=== PATIENT | female | born 1945 | race Asian ===

== ENCOUNTER 2016-11-22 15:07 | Inpatient (IN) | payer OTHER ==
[2016-11-22 15:52] LABS: VENOUS BLOOD GAS HCO3 29.6 meq/L (19-25); VENOUS PH 7.26 (7.32-7.42)
[2016-11-22 15:57] LABS: BASOPHIL 0.6 % (0-2.0); EOSINOPHIL 3.6 % (0-4.5); MCH 28.5 pg (25.7-33.7); MCHC 33.6 g/dl (32.0-36.0); MEAN CELL VOLUME 84.7 fl (80-96); MEAN PLT VOLUME 9.6 fl (7.5-11.1); NEUTROPHILS 65.8 % (42.8-82.8); PLATELET COUNT 197 K/MM3 (134-434); RDW 14.3 % (11.6-15.6); WHITE BLOOD COUNT 7.3 K/mm3 (4.0-10.0)
[2016-11-22 16:10] LABS: INR 0.94 (0.82-1.09); PROTHROMBIN TIME (PATIENT) 10.3 SEC (9.98-11.88)
[2016-11-22 16:13] LABS: ACTIVATED PTT 33.2 SECONDS (26.9-34.4)
--- NOTE | 2016-11-22 16:22 | PDOC ---
Attending Attestation - Resident Resident Name: Cesar Calzada - ED Attending Attestation I have performed the following: I have examined & evaluated the patient, The case was reviewed & discussed with the resident, I agree w/resident's findings & plan - HPI HPI: 11/22/16 16:44 71y F hx of iddm, cad s/p 1 stent, htn, presents with AMS, was found not herself by her grandchild, given juice with improvement. Pt has no complaints but she was noted hypothermic to 92 rectally here, bgm improved to 80 s/p EMS administration of deextrose. Pt at baseline mental status per son. History assisted in the patients language via her son as she did not speak emirati. unclear cause of her hypothermia - ?hypothyroid, ?sepsis awiaitng workup will likely be admitted pt was put on lonnie hugger for warming will contine to monitor her BGM. CRITICAL CARE DOCUMENTATION: I spent ~35 minutes of Critical Care time, excluding separately billable procedures, involving high complexity decision making to assess, manipulate and support vital system function(s) to treat single or multiple vital organ system failure and/or to prevent further life threatening deterioration of the patient' s condition. - Physicial Exam PE: 11/27/16 09:10 see above - Medical Decision Making 11/27/16 09:10 see above Heart Score/ECG Review - ECG Impressions Comment:: 11/22/16 16:31 Twelve-lead EKG was performed and reviewed by me. There is normal sinus rhythm with a rate of 54. no st changes suggestive of ischemia sinus bradycardia
--- NOTE | 2016-11-22 16:30 | PDOC ---
History of Present Illness - General Chief Complaint: Blood Sugar Problem Stated Complaint: LOW SUGAR Time Seen by Provider: 11/22/16 15:33 History Source: Family (son) Exam Limitations: No Limitations - History of Present Illness Initial Comments: 71 y/o F with PMH of IDDM, CAD (s/p 1 stent on plavix), HTN presents to ER w/ AMS and low blood sugar. Pt was well this morning and in usual state of health. Pt was later found in her bed at around 2PM unresponsive with eyes open by grandson. Blood sugar was checked by family and was noted to be 28. She had taken her regular dose of insulin and compliant with medical therapy as usual in the morning. EMS was called and orange juice was given which she eventually swallowed 5 min later after being in mouth. She gradually returned to baseline mental status. Pt had no complaints in the morning. Currently she feels cold. Currently denies CP, SOB, LANDA, light-headedness, dizziness, fevers, abd pain, dysuria, constipation, diarrhea, hair loss, skin changes, cold intolerance, swelling. At baseline pt is active and independent. She takes her own medications but family makes sure she takes the right amount of insulin. Past History - Past Medical History Allergies/Adverse Reactions: Allergies Allergy/AdvReac Type Severity Reaction Status Date / Time No Known Allergies Allergy Verified 11/22/16 15:26 Home Medications: Ambulatory Orders Amlodipine Besylate 5 mg PO DAILY 11/22/16 Aspirin [ASA -] 81 mg PO HS 11/22/16 Clopidogrel Bisulfate [Plavix -] 75 mg PO DAILY 11/22/16 Ergocalciferol (Vitamin D2) [Vitamin D2] 50,000 unit PO DAILY 11/22/16 Hydrochlorothiazide [Hctz -] 12.5 mg PO DAILY 11/22/16 Insulin Glargine,Hum.rec.anlog [Lantus Solostar PEN (NF)] 30 units SQ HS Insulin Lispro [Humalog] 0 unit SQ TID 11/22/16 Metoprolol Tartrate 25 mg PO BID 11/22/16 Rosuvastatin Calcium [Crestor] 10 mg PO HS 11/22/16 Sodium Polystyrene Sulfonate [Kalexate] 30 gm PO DAILY 11/22/16 Cardiac Disorders: Yes Diabetes: Yes HTN: Yes Hypercholesterolemia: Yes - Surgical History Cardiac Surgery: Yes (stent) - Psycho/Social/Smoking Cessation Hx Anxiety: No Suicidal Ideation: No Smoking History: Never smoked Information on smoking cessation initiated: No Hx Alcohol Use: No Drug/Substance Use Hx: No Substance Use Type: None Review of Systems - Review of Systems Able to Perform ROS?: Yes Comments:: CONSTITUTIONAL: +chills, AMS Absent: fever, diaphoresis, generalized weakness, malaise, loss of appetite HEENT: Absent: rhinorrhea, nasal congestion, throat pain, ear pain, eye pain, visual Changes CARDIOVASCULAR: Absent: chest pain, syncope, palpitations, irregular heart rate , lightheadedness, peripheral edema RESPIRATORY: Absent: cough, shortness of breath, dyspnea with exertion, orthopnea, wheezing, stridor, hemoptysis GASTROINTESTINAL:Absent: abdominal pain, abdominal distension, nausea, vomiting , diarrhea, constipation, melena, hematochezia GENITOURINARY: Absent: dysuria, frequency, urgency, hesitancy, hematuria, flank pain, genital pain MUSCULOSKELETAL: Absent: myalgia, arthralgia, joint swelling ENDOCRINE:Absent: unexplained weight gain, unexplained weight loss, heat intolerance, cold intolerance NEUROLOGIC: Absent: headache, focal weakness or paresthesias, dizziness, unsteady gait, seizure, mental status changes, bladder or bowel incontinence PSYCHIATRIC: Absent: anxiety, depression, suicidal or homicidal ideation, hallucinations Is the patient limited [place] proficient: Yes *Physical Exam - Vital Signs Last Vital Signs Temp Pulse Resp BP Pulse Ox 92.6 F L 53 L 20 189/76 100 11/22/16 15:59 11/22/16 15:26 11/22/16 15:26 11/22/16 15:26 11/22/16 15:26 - Physical Exam Comments: GENERAL: +lonnie hugger but in no acute distress. Well developed, well nourished. Awake and alert. No acute distress. HEENT: Normocephalic, atraumatic. EOMI. No conjunctival pallor. Sclera are non- icteric. Moist mucous membranes. NECK: Supple. Full ROM. No thyromegaly. CARDIOVASCULAR:Bradycardia. No murmurs, rubs, or gallops. PULMONARY: No evidence of respiratory distress. Lungs clear to auscultation bilaterally. No wheezing, rales or rhonchi. ABDOMINAL: Soft. Non-tender. Non-distended. No rebound or guarding. No organomegaly. Normoactive bowel sounds. MUSCULOSKELETAL: No bony deformities or tenderness. No CVA tenderness. EXTREMITIES: No edema. SKIN: Warm and dry. Normal capillary refill. No rashes. No jaundice. NEUROLOGICAL: Alert, awake, appropriate. Cranial nerves 2-12 grossly intact. Normal speech. PSYCHIATRIC: Cooperative. Good eye contact. Appropriate mood and affect. Heart Score/ECG Review - ECG Intrepretation Comment:: Sinus bradycardia at 54bpm ED Treatment Course - LABORATORY CBC & Chemistry Diagram: 11/22/16 15:44 11/22/16 15:44 - ADDITIONAL ORDERS Additional order review: Laboratory Results 11/22/16 11/22/16 15:50 15:17 VBG pH 7.26 L POC VBG pCO2 67.7 H* POC VBG pO2 20.3 L Mixed VBG HCO3 29.6 H POC Glucometer 80.96314 11/22/16 11/22/16 15:44 15:17 RBC 4.50 MCV 84.7 MCHC 33.6 RDW 14.3 MPV 9.6 Neutrophils % 65.8 Lymphocytes % 23.4 Monocytes % 6.6 Eosinophils % 3.6 Basophils % 0.6 POC Glucometer 80.71533 Medical Decision Making - Medical Decision Making 71 y/o F with PMH of IDDM, CAD (s/p 1 stent on plavix), HTN presents to ER w/ AMS and low blood sugar. Pt was well this morning and in usual state of health. Pt was later found in her bed at around 2PM unresponsive with eyes open by grandson. Blood sugar was checked by family and was noted to be 28. She had taken her regular dose of insulin and compliant with medical therapy as usual in the morning. EMS was called and orange juice was given which she eventually swallowed 5 min later after being in mouth. 11/22/16 16:25 Pt temp found to be 92. Lonnie hugger placed. Ordered CBC, CMP, lactic acid, blood culture, UA, urine culture, VBG, TSH, cardiac profile, CXR Pt has no complaints at this time except for feeling cold. She otherwise feels back to baseline except for feeling cold. 11/22/16 17:06 Lactic acid elevated at 2.1 and random glucose at 69. TSH 2.06 Due to hypothermia and hypoglycemic episode pt will likely require further management and observation. Temperature remains at 93.1 F Pt with no complaints at this time. 11/22/16 17:58 Pt to be admitted to [facility] with bradycardia and hypothermia. CONTACT INFORMATION for son: Vincenzo Chavez - [phone] *DC/Admit/Observation/Transfer Diagnosis at time of Disposition: Hypothermia Qualifiers: Encounter type: initial encounter Qualified Code(s): T68.XXXA - Hypothermia, initial encounter
[2016-11-22 16:34] LABS: ALBUMIN 4.7 g/dl (3.4-5.0); BILIRUBIN,TOTAL 0.5 mg/dL (0.2-1.0); CALCIUM 9.5 mg/dL (8.5-10.1); COCKROFT - GAULT 28.747; CREATININE 1.9 mg/dL (0.55-1.02)
[2016-11-22 16:36] LABS: TROPONIN I 0.05 ng/ml (0.00-0.05)
[2016-11-22] MEDS ORDERED: SODIUM CHLORIDE 1,000 ML IV STA (17:43)
[2016-11-22] MEDS ORDERED: DEXTROSE 5%-0.45% SALINE 1,000 ML IV SCH ×3 (18:00)
--- NOTE | 2016-11-22 18:20 | HP ---
CHIEF COMPLAINT: syncope, hypoglycemia PCP: 2 [facility] HISTORY OF PRESENT ILLNESS: 71 y/o F with PMH of IDDM, CAD (s/p 1 stent on plavix), HTN presents to ER w/ AMS and low blood sugar. Pt was well this morning and in usual state of health. Pt was later found in her bed at around 2PM unresponsive with eyes open by grandson. Blood sugar was checked by family and was noted to be 28. She had taken her regular dose of insulin and compliant with medical therapy as usual in the morning. EMS was called and orange juice was given which she eventually swallowed 5 min later after being in mouth. She gradually returned to baseline mental status. Pt had no complaints in the morning. Currently she feels cold. Currently denies CP, SOB, LANDA, light-headedness, dizziness, fevers, abd pain, dysuria, constipation, diarrhea, hair loss, skin changes, cold intolerance, swelling. At baseline pt is active and independent. She takes her own medications but family makes sure she takes the right amount of insulin. ER course was notable for: (1) hypoglycemia: continue FS, po diet improving (2) hypothermia: temp 92, bare hugger in place (3) Lactic acid 2.1 one bag of fluid Recent Travel: none PAST MEDICAL HISTORY: IDDM, CAD with stent/plavic, HTN PAST SURGICAL HISTORY: none Social History: denies toxic habits Family History: Allergies No Known Allergies Allergy (Verified 11/22/16 15:26) HOME MEDICATIONS: Home Medications Medication Instructions Recorded Amlodipine Besylate 5 mg PO DAILY 11/22/16 Aspirin [ASA -] 81 mg PO HS 11/22/16 Clopidogrel Bisulfate [Plavix -] 75 mg PO DAILY 11/22/16 Ergocalciferol (Vitamin D2) 50,000 unit PO DAILY 11/22/16 [Vitamin D2] Hydrochlorothiazide [Hctz -] 12.5 mg PO DAILY 11/22/16 Insulin Glargine,Hum.rec.anlog 30 units SQ HS 11/22/16 [Lantus Solostar PEN (NF)] Insulin Lispro [Humalog] 0 unit SQ TID 11/22/16 Metoprolol Tartrate 25 mg PO BID 11/22/16 Rosuvastatin Calcium [Crestor] 10 mg PO HS 11/22/16 Sodium Polystyrene Sulfonate 30 gm PO DAILY 11/22/16 [Kalexate] REVIEW OF SYSTEMS pt with language barrier and family that speaks for her. States she is AAO and normal mental status resolved since glucose corrected. PHYSICAL EXAMINATION GENERAL: Awake, alert, and fully oriented, in no acute distress. HEAD: Normal with no signs of trauma. NECK: Normal range of motion, supple without lymphadenopathy, JVD, or masses. LUNGS: Breath sounds equal, clear to auscultation bilaterally. No wheezes, and no crackles. No accessory muscle use. HEART: Regular rate 53-70 and rhythm, normal S1 and S2 without murmur, rub or gallop. ABDOMEN: Soft, nontender, not distended, normoactive bowel sounds, no guarding, no rebound, no masses. No hepatomegaly or splenomegaly. MUSCULOSKELETAL: Normal range of motion at all joints. No bony deformities or tenderness. No CVA tenderness. UPPER EXTREMITIES: 2+ pulses, warm, well-perfused. No cyanosis. No clubbing. No peripheral edema. LOWER EXTREMITIES: 2+ pulses, warm, well-perfused. No calf tenderness. No peripheral edema. NEUROLOGICAL: Cranial nerves II-XII intact. Normal speech. Normal gait. SKIN: Warm, dry, normal turgor, no rashes or lesions noted, normal capillary refill. ASSESSMENT/PLAN: A/P 71 yr old with recent AMS 2nd to hypoglycemic episode finding at home at 28 , now resolving however also hypothermic at 92 rectally on bare hugger slowly resolving 1. Hypothermia -bare hugger -monitor temp hourly -po intake -EKG with SB to NSR -r/o sepsis ~ ua, ucx, cxr, blood cx (no source seeded currently) 2. hypoglycemia -finger sticks ac and hs with sliding scale -hold lantus and humaolg home meds -ivf with d5ns -labs routine 3. Sepsis work up -ua, cx ~ placing beckwith with poor urinary output -strict I and O -cxr prelim clear -blood cx obtained in ER 4. HTN -continue meds 5. GI/PPX Visit type - Emergency Visit Emergency Visit: Yes ED Registration Date: 11/22/16 Care time: The patient presented to the Emergency Department on the above date and was hospitalized for further evaluation of their emergent condition. - New Patient This patient is new to me today: Yes Date on this admission: 11/22/16 - Critical Care Critical Care patient: No
[2016-11-22 18:30] LABS: URINE APPEARANCE CLEAR; URINE BILIRUBIN NEGATIVE (NEGATIVE); URINE BLOOD NEGATIVE (NEGATIVE); URINE COLOR LTYELLOW; URINE GLUCOSE (UA) NEGATIVE (NEGATIVE); URINE KETONE NEGATIVE (NEGATIVE); URINE NITRITE NEGATIVE (NEGATIVE); URINE UROBILINOGEN NEGATIVE E.U./dl (0.2-1.0)
[2016-11-22 18:34] LABS: URINE LEUK ESTERASE 1+ (NEGATIVE); URINE PROTEIN 2+ (NEGATIVE)
[2016-11-22 18:36] LABS: URINE BACTERIA RARE /hpf (NONE SEEN); URINE RBC 1 /hpf (0-3); URINE WBC 19 /hpf (3-5)
[2016-11-22] MEDS ORDERED: SODIUM CHLORIDE 1,000 ML IV SCH ×2 (19:15)
[2016-11-22] MEDS ORDERED: PIPERACILLIN/TAZOB 3.375 GM/50 ML PRE-DOCKED IVPB SCH (19:45)
[2016-11-22] MEDS ORDERED: PIPERACILLIN/TAZOB 3.375 GM/50 ML PRE-DOCKED IVPB ONE ×2 (19:45)
[2016-11-22] MEDS ORDERED: ASPIRIN 81 MG CHEWABLE TABLETS ONE (22:04)
[2016-11-22] MEDS ORDERED: METOPROLOL TARTRATE 25 MG TABLET (FP) ONE (22:05)
[2016-11-22] MEDS: ASPIRIN 81 MG CHEWABLE TABLETS PO SCH (22:44)
[2016-11-22] MEDS: METOPROLOL TARTRATE 25 MG TABLET (FP) PO SCH (22:44)
[2016-11-22] MEDS: ROSUVASTATIN CA 10 MG TABLET (FP) PO SCH (22:44)
[2016-11-22] MEDS: INSULIN SLIDING SCALE (NOVOLOG) 1 VIAL SQ SCH (22:45)
[2016-11-23 04:22] VITALS: BMI 26.3
[2016-11-23] MEDS: INSULIN SLIDING SCALE (NOVOLOG) 1 VIAL SQ SCH ×6 (06:05→21:23)
[2016-11-23 06:56] LABS: MCH 28.8 pg (25.7-33.7); MCHC 34.7 g/dl (32.0-36.0); MEAN CELL VOLUME 82.9 fl (80-96); MEAN PLT VOLUME 9.3 fl (7.5-11.1); PLATELET COUNT 194 K/MM3 (134-434); RDW 14.1 % (11.6-15.6); WHITE BLOOD COUNT 6.2 K/mm3 (4.0-10.0)
[2016-11-23 07:08] LABS: CALCIUM 8.8 mg/dL (8.5-10.1); COCKROFT - GAULT 28.4665; CREATININE 1.9 mg/dL (0.55-1.02); MAGNESIUM 2.6 mg/dL (1.8-2.4); PHOSPHOROUS 3.9 mg/dL (2.5-4.9)
[2016-11-23 07:13] LABS: TROPONIN I 0.06 ng/ml (0.00-0.05)
[2016-11-23] MEDS ORDERED: HEMOQUE TEST 1 EACH EACH ONE (07:43)
--- NOTE | 2016-11-23 08:18 | PN ---
Progress Note (short form) - Note Progress Note: ID Full note dictated Appreciate request for referral She is alert and in NAD Selected Entries 11/23/16 06:00 Temperature 98 F Pulse Rate 61 Respiratory 12 Rate Blood Pressure 154/54 Lung Clear Cor S1 S2 Abd Benign Microbiology Laboratory Tests 11/22/16 11/22/16 11/23/16 15:44 15:44 05:30 WBC 6.2 Hgb 11.3 D Hct 32.5 Plt Count 194 BUN Creatinine Random Glucose 69 L Lactic Acid 2.118 H* AST 29 ALT 34 Alkaline Phosphatase 127 H 11/23/16 05:30 WBC Hgb Hct Plt Count BUN 40 H Creatinine 1.9 H Random Glucose Lactic Acid AST ALT Alkaline Phosphatase Assessment Doubt sepsis Plan Zosyn can be discontinued if culstures no growth tomorrow THus far this am blood cultures no growth Arturo WHITEHEAD Problem List - Problems (1) Hypothermia Code(s): T68.XXXA - HYPOTHERMIA, INITIAL ENCOUNTER Qualifiers: Encounter type: initial encounter Qualified Code(s): T68.XXXA - Hypothermia, initial encounter (2) Hypoglycemia Code(s): E16.2 - HYPOGLYCEMIA, UNSPECIFIED (3) Sepsis Code(s): A41.9 - SEPSIS, UNSPECIFIED ORGANISM
[2016-11-23] MEDS ORDERED: PT OWN MED DRAWER 7, Y5N ONE ×2 (08:24→20:30)
[2016-11-23] MEDS ORDERED: amLODIPine BESYLATE 5 MG TABLET (FP) PO SCH ×3 (08:30→10:00)
[2016-11-23] MEDS: HYDROCHLOROTHIAZIDE 12.5 MG CAPSULE (FP) PO SCH (08:50)
--- NOTE | 2016-11-23 08:59 | EKG ---
Test Reason : Blood Pressure : / mmHG Vent. Rate : 054 BPM Atrial Rate : 054 BPM P-R Int : 166 ms QRS Dur : 084 ms QT Int : 514 ms P-R-T Axes : 059 015 035 degrees QTc Int : 487 ms POOR DATA QUALITY, INTERPRETATION MAY BE ADVERSELY AFFECTED SINUS BRADYCARDIA OTHERWISE NORMAL ECG WHEN COMPARED WITH ECG OF 30-OCT-2010 18:37, ST ELEVATION NOW PRESENT IN LATERAL LEADS T WAVE INVERSION NO LONGER EVIDENT IN LATERAL LEADS Confirmed by WILLI RODRIGEZ MD ([id number]) on 11/23/2016 8:59:05 AM Referred By: Confirmed By:WILLI RODRIGEZ MD
--- NOTE | 2016-11-23 09:00 | PN ---
Physical Exam: SUBJECTIVE: Patient seen and examined. comfortably resting in bed. philip speaking only. OBJECTIVE: Vital Signs Period Temp Pulse Resp BP Sys/Dinero Pulse Ox Last 24 Hr 94.7 F-99.2 F 59-66 12-18 140-185/54-72 98-100 GENERAL: The patient is awake, alert, in no acute distress. HEAD: Normal with no signs of trauma. EYES: PERRL, extraocular movements intact, sclera anicteric, conjunctiva clear. No ptosis. ENT: oropharynx clear without exudates, moist mucous membranes. NECK: Trachea midline, full range of motion, supple. LUNGS: Breath sounds equal, clear to auscultation bilaterally, no wheezes, no crackles, no accessory muscle use. HEART: Regular rate and rhythm, S1, S2 without murmur, rub or gallop. ABDOMEN: Soft, nontender, nondistended, normoactive bowel sounds, no guarding, no rebound, no hepatosplenomegaly, no masses. EXTREMITIES: 2+ pulses, warm, well-perfused, no edema. NEUROLOGICAL: Cranial nerves II through XII grossly intact. Normal speech PSYCH: Normal mood, normal affect. SKIN: Warm, dry, normal turgor, no rashes or lesions noted Laboratory Results - last 24 hr 11/22/16 11/22/16 11/22/16 18:20 18:24 19:47 WBC RBC Hgb Hct MCV MCHC RDW Plt Count MPV Sodium Potassium Chloride Carbon Dioxide Anion Gap BUN Creatinine POC Glucometer 168.91703 Random Glucose Lactic Acid 1.865 Calcium Phosphorus Magnesium Creatine Kinase Troponin I Urine Color Ltyellow Urine Appearance Clear Urine pH 7.0 Ur Specific [place] 1.015 Urine Protein 2+ H Urine Glucose (UA) Negative Urine Ketones Negative Urine Blood Negative Urine Nitrite Negative Urine Bilirubin Negative Urine Urobilinogen Negative Ur Leukocyte Esterase 1+ H Urine RBC 1 Urine WBC 19 Ur Epithelial Cells Few Urine Bacteria Rare 11/22/16 11/23/16 11/23/16 22:38 05:30 05:30 WBC 6.2 RBC 3.92 Hgb 11.3 D Hct 32.5 MCV 82.9 MCHC 34.7 RDW 14.1 Plt Count 194 MPV 9.3 Sodium 144 Potassium 3.4 L D Chloride 104 Carbon Dioxide 31 Anion Gap 9 BUN 40 H Creatinine 1.9 H POC Glucometer 281.09713 Random Glucose 35 L* D Lactic Acid Calcium 8.8 Phosphorus 3.9 Magnesium 2.6 H Creatine Kinase 108 Troponin I 0.06 H Urine Color Urine Appearance Urine pH Ur Specific [place] Urine Protein Urine Glucose (UA) Urine Ketones Urine Blood Urine Nitrite Urine Bilirubin Urine Urobilinogen Ur Leukocyte Esterase Urine RBC Urine WBC Ur Epithelial Cells Urine Bacteria 11/23/16 11/23/16 11/23/16 05:30 06:03 07:45 WBC RBC Hgb Hct MCV MCHC RDW Plt Count MPV Sodium Potassium Chloride Carbon Dioxide Anion Gap BUN Creatinine POC Glucometer 73.73839 90.47427 Random Glucose Lactic Acid 1.236 Calcium Phosphorus Magnesium Creatine Kinase Troponin I Urine Color Urine Appearance Urine pH Ur Specific [place] Urine Protein Urine Glucose (UA) Urine Ketones Urine Blood Urine Nitrite Urine Bilirubin Urine Urobilinogen Ur Leukocyte Esterase Urine RBC Urine WBC Ur Epithelial Cells Urine Bacteria Active Medications Generic Name Dose Route Start Last Admin Trade Name Freq PRN Reason Stop Dose Admin Amlodipine Besylate 5 mg 11/23/16 08:30 11/23/16 08:50 Norvasc - PO 5 mg DAILY NEFTALY Administration Aspirin 81 mg 11/22/16 22:00 11/22/16 22:44 Asa - PO 81 mg HS NEFTALY Administration Clopidogrel Bisulfate 75 mg 11/23/16 10:00 Plavix - PO DAILY NEFTALY Hydrochlorothiazide 12.5 mg 11/23/16 08:30 11/23/16 08:50 Hctz - PO 12.5 mg DAILY NEFTALY Administration Sodium Chloride 1,000 mls @ 75 mls/hr 11/22/16 19:15 11/22/16 19:42 Normal Saline - IV 11/23/16 19:12 75 mls/hr ASDIR NEFTALY Administration Insulin Aspart 1 vial 11/22/16 22:00 11/23/16 06:05 Novolog Vial Sliding Scale - SQ Not Given ACHS [facility] Protocol Insulin Aspart 1 vial 11/23/16 07:00 11/23/16 06:05 Novolog Vial Sliding Scale - SQ Not Given TIDAC [facility] Protocol Metoprolol Tartrate 25 mg 11/22/16 22:00 11/22/16 22:44 Lopressor - PO 25 mg BID NEFTALY Administration Piperacillin Sod/Tazobactam Sod 3.375 gm 11/22/16 19:45 Zosyn 3.375gm Ivpb (Pre-Docked) IVPB Q8H-IV NEFTALY Protocol Rosuvastatin Calcium 10 mg 11/22/16 22:00 11/22/16 22:44 Crestor - PO 10 mg HS NEFTALY Administration ASSESSMENT/PLAN: 71 yr old woman with CKD, IDDM II, HTN, bibems for AMS and hypoglycemia, admitted for hypothermia. Neurological AMS back to baseline, patient alert and awake, following commands appropriately , NAD AMS likely metabolic encephalopathy secondary to hypoglycemia ID r/o sepsis due to hypothermia; no leucocytosis, cxry clear, bld cx without growth, ucx pending. hypothermia likely due to hypoglycemia monitor off abx consult: Dr. Morris Endocrine BGM have been labile, with fasting at 35 this AM DM II - BGM ACHS, NISS hold long acting insulin recommend outpatient endocrine f/u and diabetic teaching, suspicious for poor po intake in elderly with unadjusted insulin dose Cardiovascular HTN - norvasc 5mg po daily, lopressor 25mg po daily, HCTz 12.5mg po daily CAD/ HLD -- crestor 10mg po daily, ASA, Plavix Renal Cr stable, CKD likely secondary to DM and HTN IVF Ns @7mls/hr replete electrolytes consult: Dr. Blayne Arredondo; diabetic diet DVT; heparin 5000 bid Dispo: AMS/hypothermia/hypoglycemia improved - patient can be monitored on Med- Surg floor Visit type - Emergency Visit Emergency Visit: No - New Patient This patient is new to me today: Yes Date on this admission: 11/23/16 - Critical Care Critical Care patient: Yes Total Critical Care Time (in minutes): 39 Critical Care Statement: The care of this patient involved high complexity decision making to prevent further life threatening deterioration of the patient 's condition and/or to evalute & treat vital organ system(s) failure or risk of failure.
--- NOTE | 2016-11-23 09:42 | PN ---
Physical Exam: SUBJECTIVE: Patient seen and examined at bedside in ICU. OBJECTIVE: Vital Signs Period Temp Pulse Resp BP Sys/Dinero Pulse Ox Last 24 Hr 94.7 F-99.2 F 59-66 12-18 140-189/54-72 98-100 GENERAL: The patient is awake, alert, and fully oriented, in no acute distress. HEAD: Normal with no signs of trauma. EYES: PERRL, extraocular movements intact, sclera anicteric, conjunctiva clear. No ptosis. LUNGS: Breath sounds equal, clear to auscultation bilaterally, no wheezes, no crackles, no accessory muscle use. HEART: Regular rate and rhythm, S1, S2 without murmur, rub or gallop. ABDOMEN: Soft, nontender, nondistended, normoactive bowel sounds, no guarding, no rebound EXTREMITIES: 2+ pulses, warm, well-perfused, no edema. NEUROLOGICAL: Cranial nerves II through XII grossly intact. Normal speech, gait not observed. Laboratory Results - last 24 hr 11/22/16 11/22/16 11/22/16 18:20 18:24 19:47 WBC RBC Hgb Hct MCV MCHC RDW Plt Count MPV Sodium Potassium Chloride Carbon Dioxide Anion Gap BUN Creatinine POC Glucometer 168.72250 Random Glucose Hemoglobin A1c % Lactic Acid 1.865 Calcium Phosphorus Magnesium Creatine Kinase Troponin I Urine Color Ltyellow Urine Appearance Clear Urine pH 7.0 Ur Specific [place] 1.015 Urine Protein 2+ H Urine Glucose (UA) Negative Urine Ketones Negative Urine Blood Negative Urine Nitrite Negative Urine Bilirubin Negative Urine Urobilinogen Negative Ur Leukocyte Esterase 1+ H Urine RBC 1 Urine WBC 19 Ur Epithelial Cells Few Urine Bacteria Rare 11/22/16 11/23/16 11/23/16 22:38 05:30 05:30 WBC 6.2 RBC 3.92 Hgb 11.3 D Hct 32.5 MCV 82.9 MCHC 34.7 RDW 14.1 Plt Count 194 MPV 9.3 Sodium 144 Potassium 3.4 L D Chloride 104 Carbon Dioxide 31 Anion Gap 9 BUN 40 H Creatinine 1.9 H POC Glucometer 281.04557 Random Glucose 35 L* D Hemoglobin A1c % Lactic Acid Calcium 8.8 Phosphorus 3.9 Magnesium 2.6 H Creatine Kinase 108 Troponin I 0.06 H Urine Color Urine Appearance Urine pH Ur Specific [place] Urine Protein Urine Glucose (UA) Urine Ketones Urine Blood Urine Nitrite Urine Bilirubin Urine Urobilinogen Ur Leukocyte Esterase Urine RBC Urine WBC Ur Epithelial Cells Urine Bacteria 11/23/16 11/23/16 11/23/16 05:30 05:30 06:03 WBC RBC Hgb Hct MCV MCHC RDW Plt Count MPV Sodium Potassium Chloride Carbon Dioxide Anion Gap BUN Creatinine POC Glucometer 73.32349 Random Glucose Hemoglobin A1c % 7.0 H Lactic Acid 1.236 Calcium Phosphorus Magnesium Creatine Kinase Troponin I Urine Color Urine Appearance Urine pH Ur Specific [place] Urine Protein Urine Glucose (UA) Urine Ketones Urine Blood Urine Nitrite Urine Bilirubin Urine Urobilinogen Ur Leukocyte Esterase Urine RBC Urine WBC Ur Epithelial Cells Urine Bacteria 11/23/16 11/23/16 07:45 08:35 WBC RBC Hgb Hct MCV MCHC RDW Plt Count MPV Sodium Potassium Chloride Carbon Dioxide Anion Gap BUN Creatinine POC Glucometer 90.76974 Random Glucose 128 H D Hemoglobin A1c % Lactic Acid Calcium Phosphorus Magnesium Creatine Kinase Troponin I Urine Color Urine Appearance Urine pH Ur Specific [place] Urine Protein Urine Glucose (UA) Urine Ketones Urine Blood Urine Nitrite Urine Bilirubin Urine Urobilinogen Ur Leukocyte Esterase Urine RBC Urine WBC Ur Epithelial Cells Urine Bacteria Active Medications Generic Name Dose Route Start Last Admin Trade Name Freq PRN Reason Stop Dose Admin Amlodipine Besylate 5 mg 11/23/16 08:30 11/23/16 08:50 Norvasc - PO 5 mg DAILY NEFTALY Administration Aspirin 81 mg 11/22/16 22:00 11/22/16 22:44 Asa - PO 81 mg HS NEFTALY Administration Clopidogrel Bisulfate 75 mg 11/23/16 10:00 Plavix - PO DAILY [facility] Hydrochlorothiazide 12.5 mg 11/23/16 08:30 11/23/16 08:50 Hctz - PO 12.5 mg DAILY NEFTALY Administration Sodium Chloride 1,000 mls @ 75 mls/hr 11/22/16 19:15 11/22/16 19:42 Normal Saline - IV 11/23/16 19:12 75 mls/hr ASDIR NEFTALY Administration Insulin Aspart 1 vial 11/22/16 22:00 11/23/16 06:05 Novolog Vial Sliding Scale - SQ Not Given ACHS [facility] Protocol Insulin Aspart 1 vial 11/23/16 07:00 11/23/16 06:05 Novolog Vial Sliding Scale - SQ Not Given TIDAC [facility] Protocol Metoprolol Tartrate 25 mg 11/22/16 22:00 11/22/16 22:44 Lopressor - PO 25 mg BID NEFTALY Administration Piperacillin Sod/Tazobactam Sod 3.375 gm 11/22/16 19:45 Zosyn 3.375gm Ivpb (Pre-Docked) IVPB Q8H-IV NEFTALY Protocol Rosuvastatin Calcium 10 mg 11/22/16 22:00 11/22/16 22:44 Crestor - PO 10 mg HS NEFTALY Administration ASSESSMENT/PLAN 71 year-old female with a PMH of HTN, CAD s/p stent x 1, and IDDM. Admitted for metabolic encephalopathy secondary to hypoglycemia and hypothermia. Metabolic encephalopathy secondary to hypoglycemia IDDM --much improved, mental status back to baseline --Novolog sliding scale coverage Hypothermia, resolved --Amparo hugger off Pyuria --continue Zosyn until cultures back Lactic acidosis, resolved CAD --continue ASA, Plavix, statin Hypertension --BP elevated but HR in low 60s --increase amlodipine to 10mg Chronic renal insufficiency --Cr 1.9, baseline unknown; last recorded Cr 1.3 six years ago --will continue to monitor Hypokalemia --repleted F/E/N Fluids: PO intake adequate Electrolytes: replete as indicated Nutrition: diabetic diet DVT prophylaxis: subq heparin, oob, ambulation Dispo: continues to require inpatient care. Full code. Visit type - Emergency Visit Emergency Visit: Yes ED Registration Date: 11/22/16 Care time: The patient presented to the Emergency Department on the above date and was hospitalized for further evaluation of their emergent condition. - New Patient This patient is new to me today: Yes Date on this admission: 11/24/16 - Critical Care Critical Care patient: No
[2016-11-23] MEDS ORDERED: HYDROCHLOROTHIAZIDE 12.5 MG CAPSULE (FP) PO SCH (10:00)
[2016-11-23] MEDS ORDERED: CEFTRIAXONE 50 ML IVPB SCH (10:00)
[2016-11-23] MEDS ORDERED: METOPROLOL TARTRATE 25 MG TABLET (FP) PO SCH (10:00)
[2016-11-23] MEDS: METOPROLOL TARTRATE 25 MG TABLET (FP) PO SCH ×2 (10:08→21:22)
[2016-11-23] MEDS: CLOPIDOGREL BISULFATE 75 MG TABLET (FP) PO SCH (10:08)
--- NOTE | 2016-11-23 10:15 | CONS ---
INFECTIOUS DISEASE CONSULT DATE OF CONSULTATION: DATE OF DICTATION: 11/23/2016 HISTORY OF PRESENT ILLNESS: This is an Greek-speaking female, 71 years of age , who I am asked to see in the intensive care unit for evaluation of possible sepsis. The patient is a known insulin-dependent diabetic living at home. She also has a history of a coronary stent for which she is on anticoagulation with Plavix, has hypertension and presents now with chief complaints of altered mental status and found to be hypoglycemic. She had apparently been in her usual state of health until yesterday morning when around 2 p.m. she was found by her grandson and noted to be unresponsive with eyes open. A blood sugar was checked by the family and was found to be 28. She has been taking her regular doses of insulin and by history has been compliant with her medical therapy. EMS was called. [place] juice was given, which she was eventually able to swallow. She gradually returned to her baseline mental status. She offered no complaints of cough, chills, abdominal pain or urinary complaints though she did feel cold. She had no chest pain, shortness of breath and no syncope. Here she was found to be hypothermic with a temperature of 92 and hypoglycemic , as mentioned above. A lactic acid was 2.1, and she was treated with intravenous fluids and empirically given piperacillin tazobactam after cultures were drawn. Again , at the current time, she appears in no acute distress, denies any pain or other complaints. PAST MEDICAL HISTORY: Includes insulin-dependent diabetes, coronary artery disease with stent, hypertension. MEDICATIONS AT HOME: Amlodipine, aspirin, Plavix, vitamin D, hydrochlorothiazide, insulin, metoprolol, Crestor. ALLERGIES: None known. SOCIAL HISTORY: Greek female. No history of smoking or alcohol use. FAMILY HISTORY: Unable to obtain from the patient. REVIEW OF SYSTEMS: Respiratory: No shortness of breath, cough, hemoptysis. Cardiac: No chest pain, palpitations, syncope, murmur. Gastrointestinal: No abdominal pain, nausea, vomiting, diarrhea, blood per rectum. Genitourinary: No dysuria, hematuria, urinary frequency, incontinence. Neurologic: No headaches, visual complaints, weakness, seizures. PHYSICAL EXAMINATION: General: She was a fully-alert female in no acute distress. Vital signs: Temperature was 98, pulse 60, blood pressure 154/54, respirations 12. HEENT: The neck was supple without adenopathy. Lungs: Clear to percussion and auscultation. Heart: S1, S2, regular rhythm without audible murmur or gallop. Abdomen: Positive bowel sounds, no distention, soft/nontender without organomegaly. Extremities: Without clubbing cyanosis or edema. Neurologic: Cranial nerves intact. Speech appears normal. Normal gait noted. LABS: The white count is 6.2 with a hemoglobin of 11.3, platelets of 194. INR of 0.94. BUN of 43, creatinine 1.9. Lactic acid on admission 2.1, then 1.8. Liver enzymes within normal limits except alkaline phosphatase mildly elevated, 127. Urinalysis with 1 RBC, 1+ leukocyte esterase and 19 WBCs. Chest x-ray reviewed shows no acute infiltrate seen. ASSESSMENT: A 71-year-old female with known insulin dependent diabetes presents unresponsive in the setting of hypoglycemia and found to be hypothermic. Currently, she appears quite stable and sepsis syndrome less likely. Incidentally noted are some white cells on her urinalysis, and she has been placed on piperacillin tazobactam per Gail Ortiz, AMBER. PLAN: At this point, her blood cultures as of this morning are no growth, and I will empirically continue this treatment until tomorrow. Depending on results, she can probably be switched to either an oral antibiotic, or hopefully taken off antibiotics entirely. Her blood sugars will continue to be monitored in the ICU for today. BRADLEY SINCLAIR M.D. [id number] MTDD
[2016-11-23 10:24] LABS: TROPONIN I 0.06 ng/ml (0.00-0.05)
[2016-11-23] MEDS: HEPARIN NA (PORCINE) 5,000 UNITS/ML 1ML VIAL SQ SCH ×2 (12:22→21:20)
[2016-11-23] MEDS: POTASSIUM CHLORIDE TABS 20 MEQ TABLET.ER (FP) PO ONE ×2 (12:22→13:22)
[2016-11-23 12:59] LABS: CALCIUM 8.5 mg/dL (8.5-10.1); COCKROFT - GAULT 28.4665; CREATININE 1.9 mg/dL (0.55-1.02)
--- NOTE | 2016-11-23 14:11 | CONSULT ---
Consult Consult Specialty:: Nephrology ( Drs. Little/ doyle) Reason for Consultation:: Many thanks for the consult referral. 71 y/o female admitted with acutely altered mental status, and she was found to be profoundly Hypoglycemic and Hypothermic. The patient is a poor historian because of language barrier. But it is apparent that all the symptoms happened suddenly. - History of Present Illness History of Present Illness: The patient has h/o DM2, Hypertension, Coronary artery disease. No loss of appetite. Took her medications regularly. No chest pain, No shortness of breath. NO / GI symptoms. - History Source History Provided By: Patient, Medical Record Limitations to Obtaining History: Language Barrier - Past Medical History [employer]ENT: No: Alzheimer's, CVA Cardio/Vascular: Yes: HTN. No: AFIB Pulmonary: No: Asthma Gastrointestinal: No: Constipation Renal/: Yes: Renal Failure (Chronic Stage 4) ...: No Endocrine: Yes: Diabetes Mellitus - Alcohol/Substance Use Hx Alcohol Use: No - Smoking History Smoking history: Never smoked Home Medications - Allergies Allergies/Adverse Reactions: Allergies Allergy/AdvReac Type Severity Reaction Status Date / Time No Known Allergies Allergy Verified 11/22/16 15:26 - Home Medications Home Medications: Ambulatory Orders Amlodipine Besylate 5 mg PO DAILY 11/22/16 Aspirin [ASA -] 81 mg PO HS 11/22/16 Clopidogrel Bisulfate [Plavix -] 75 mg PO DAILY 11/22/16 Ergocalciferol (Vitamin D2) [Vitamin D2] 50,000 unit PO 11/22/16 Hydrochlorothiazide [Hctz -] 12.5 mg PO DAILY 11/22/16 Insulin Glargine,Hum.rec.anlog [Lantus Solostar PEN (NF)] 30 units SQ HS Insulin Lispro [Humalog] 0 unit SQ TID 11/22/16 Metoprolol Tartrate 25 mg PO BID 11/22/16 Rosuvastatin Calcium [Crestor] 10 mg PO HS 11/22/16 Sodium Polystyrene Sulfonate [Kalexate] 30 gm PO DAILY 11/22/16 Review of Systems - Review of Systems Constitutional: reports: Lethargy, Weakness. denies: Chills, Fever Neck: reports: No Symptoms Respiratory: reports: No Symptoms Gastrointestinal: reports: No Symptoms. denies: Abdominal Pain Genitourinary: reports: No Symptoms. denies: Burning Musculoskeletal: reports: No Symptoms Neurological: reports: Change in LOC, Change in Speech, Confusion Physical Exam Vital Signs: Vital Signs Temperature 97.4 F L 11/23/16 08:00 Pulse Rate 66 11/23/16 12:00 Respiratory Rate 22 11/23/16 12:00 Blood Pressure 179/61 11/23/16 12:00 O2 Sat by Pulse Oximetry (%) 99 11/23/16 09:00 Constitutional: Yes: Well Nourished, Calm, Anxious (Patient's clinical status improved with correction of Hypoglycemia) HENT: Yes: WNL Neck: Yes: WNL Cardiovascular: Yes: Regular Rate and Rhythm, S1, S2 Respiratory: Yes: Regular, CTA Bilaterally, Diminished Gastrointestinal: Yes: Normal Bowel Sounds, Abdomen, Obese Renal/: No: Bladder Distention, Hematuria, Oliguria Edema: No Labs: CBC, BMP 11/23/16 05:30 11/23/16 12:21 Problem List - Problems (1) Hypoglycemia Code(s): E16.2 - HYPOGLYCEMIA, UNSPECIFIED (2) Hypothermia Code(s): T68.XXXA - HYPOTHERMIA, INITIAL ENCOUNTER Qualifiers: Encounter type: initial encounter Qualified Code(s): T68.XXXA - Hypothermia, initial encounter (3) Sepsis Code(s): A41.9 - SEPSIS, UNSPECIFIED ORGANISM (4) Hypertension Code(s): I10 - ESSENTIAL (PRIMARY) HYPERTENSION (5) Coronary artery disease Code(s): I25.10 - ATHSCL HEART DISEASE OF [place] CORONARY ARTERY W/O ANG PCTRS (6) Diabetes mellitus with insulin therapy Code(s): E11.9 - TYPE 2 DIABETES MELLITUS WITHOUT COMPLICATIONS Z79.4 - SENIOR LIVING (CURRENT) USE OF INSULIN (7) Chronic kidney disease, stage 4 (severe) Code(s): N18.4 - CHRONIC KIDNEY DISEASE, STAGE 4 (SEVERE) Assessment/Plan This is a 71 y/o female with h/o type 2 Diabetes mellitus, Insulin dependent, admittted with profound Hypoglycemia and Hypothermia. Hypoglycemia is now corrected with IV Dextrose infusions. The Hypothermia is also corrected . The etiology of the above remains obscure. There is no evidence of overt sepsis. Had underlying Chronic Kidney disease from Microvascular Diabetic and Hypertensive changes. The Renal functions are close to her baseline. Concur with the current management. Need to r/o any sources of sepsis ( Hypoglycemia/ Hypothermia combination) May DC the IV fluids at this point. Thanks again. Will f/u with you. Gisela Little MD
--- NOTE | 2016-11-23 15:35 | PN ---
Teaching Attending Note Name of Resident: Abby Hernandez ATTENDING PHYSICIAN STATEMENT I saw and evaluated the patient. I reviewed the resident's note and discussed the case with the resident. I agree with the resident's findings and plan as documented. SUBJECTIVE: Patient seen and examined in the ICU. Awake and alert. No further episodes of hypoglycemia. No CP or SOB. Intake & Output 11/20/16 11/21/16 11/22/16 11/23/16 23:59 23:59 23:59 23:59 Intake Total 500 575 Output Total 1000 Balance 500 -425 Weight 150 lb 148 lb 9 oz Last Vital Signs Temp Pulse Resp BP Pulse Ox 97.4 F L 71 19 164/58 99 11/23/16 08:00 11/23/16 14:00 11/23/16 14:00 11/23/16 14:00 11/23/16 09:00 Active Medications Amlodipine Besylate (Norvasc -) 10 mg PO DAILY [facility] Aspirin (Asa -) 81 mg PO [facility] Last Admin: 11/22/16 22:44 Dose: 81 mg Clopidogrel Bisulfate (Plavix -) 75 mg PO DAILY [facility] Last Admin: 11/23/16 10:08 Dose: 75 mg Heparin Sodium (Porcine) (Heparin -) 5,000 unit SQ BID [facility] Last Admin: 11/23/16 12:22 Dose: 5,000 unit Hydrochlorothiazide (Hctz -) 12.5 mg PO DAILY [facility] Last Admin: 11/23/16 08:50 Dose: 12.5 mg Insulin Aspart (Novolog Vial Sliding Scale -) 1 vial SQ [facility] PRN Reason: Protocol Metoprolol Tartrate (Lopressor -) 25 mg PO BID [facility] Rosuvastatin Calcium (Crestor -) 10 mg PO [facility] Last Admin: 11/22/16 22:44 Dose: 10 mg GENERAL: The patient is awake, alert, and fully oriented, in no acute distress. HEAD: Normal with no signs of trauma. EYES: PERRL, extraocular movements intact, sclera anicteric, conjunctiva clear. No ptosis. LUNGS: Breath sounds equal, clear to auscultation bilaterally, no wheezes, no crackles, no accessory muscle use. HEART: Regular rate and rhythm, S1, S2 without murmur, rub or gallop. ABDOMEN: Soft, nontender, nondistended, normoactive bowel sounds, no guarding, no rebound EXTREMITIES: 2+ pulses, warm, well-perfused, no edema. NEUROLOGICAL: Cranial nerves II through XII grossly intact. Normal speech, gait not observed. Laboratory Results - last 24 hr 11/22/16 11/22/16 11/22/16 15:17 15:44 15:44 WBC 7.3 RBC 4.50 Hgb 12.8 Hct 38.1 MCV 84.7 MCHC 33.6 RDW 14.3 Plt Count 197 MPV 9.6 Neutrophils % 65.8 Lymphocytes % 23.4 Monocytes % 6.6 Eosinophils % 3.6 Basophils % 0.6 INR 0.94 PTT (Actin FS) 33.2 VBG pH POC VBG pCO2 POC VBG pO2 Mixed VBG HCO3 Sodium Potassium Chloride Carbon Dioxide Anion Gap BUN Creatinine Creat Clearance w eGFR POC Glucometer 80.24437 Random Glucose Hemoglobin A1c % Lactic Acid Calcium Phosphorus Magnesium Total Bilirubin AST ALT Alkaline Phosphatase Creatine Kinase Troponin I Total Protein Albumin TSH Urine Color Urine Appearance Urine pH Ur Specific [place] Urine Protein Urine Glucose (UA) Urine Ketones Urine Blood Urine Nitrite Urine Bilirubin Urine Urobilinogen Ur Leukocyte Esterase Urine RBC Urine WBC Ur Epithelial Cells Urine Bacteria Blood Type Antibody Screen 11/22/16 11/22/16 11/22/16 15:44 15:44 15:44 WBC RBC Hgb Hct MCV MCHC RDW Plt Count MPV Neutrophils % Lymphocytes % Monocytes % Eosinophils % Basophils % INR PTT (Actin FS) VBG pH POC VBG pCO2 POC VBG pO2 Mixed VBG HCO3 Sodium 141 Potassium 4.5 Chloride 103 Carbon Dioxide 33 H Anion Gap 5 L BUN 43 H Creatinine 1.9 H Creat Clearance w eGFR 25.98 POC Glucometer Random Glucose 69 L Hemoglobin A1c % Lactic Acid 2.118 H* Calcium 9.5 Phosphorus Magnesium Total Bilirubin 0.5 AST 29 ALT 34 Alkaline Phosphatase 127 H Creatine Kinase 128 Troponin I 0.05 Total Protein 8.0 Albumin 4.7 TSH Urine Color Urine Appearance Urine pH Ur Specific [place] Urine Protein Urine Glucose (UA) Urine Ketones Urine Blood Urine Nitrite Urine Bilirubin Urine Urobilinogen Ur Leukocyte Esterase Urine RBC Urine WBC Ur Epithelial Cells Urine Bacteria Blood Type B POSITIVE Antibody Screen Negative 11/22/16 11/22/16 11/22/16 15:44 15:50 16:45 WBC RBC Hgb Hct MCV MCHC RDW Plt Count MPV Neutrophils % Lymphocytes % Monocytes % Eosinophils % Basophils % INR PTT (Actin FS) VBG pH 7.26 L POC VBG pCO2 67.7 H* POC VBG pO2 20.3 L Mixed VBG HCO3 29.6 H Sodium Potassium Chloride Carbon Dioxide Anion Gap BUN Creatinine Creat Clearance w eGFR POC Glucometer 83.00146 Random Glucose Hemoglobin A1c % Lactic Acid Calcium Phosphorus Magnesium Total Bilirubin AST ALT Alkaline Phosphatase Creatine Kinase Troponin I Total Protein Albumin TSH 2.06 Urine Color Urine Appearance Urine pH Ur Specific [place] Urine Protein Urine Glucose (UA) Urine Ketones Urine Blood Urine Nitrite Urine Bilirubin Urine Urobilinogen Ur Leukocyte Esterase Urine RBC Urine WBC Ur Epithelial Cells Urine Bacteria Blood Type Antibody Screen 11/22/16 11/22/16 11/22/16 18:20 18:24 19:47 WBC RBC Hgb Hct MCV MCHC RDW Plt Count MPV Neutrophils % Lymphocytes % Monocytes % Eosinophils % Basophils % INR PTT (Actin FS) VBG pH POC VBG pCO2 POC VBG pO2 Mixed VBG HCO3 Sodium Potassium Chloride Carbon Dioxide Anion Gap BUN Creatinine Creat Clearance w eGFR POC Glucometer 168.48803 Random Glucose Hemoglobin A1c % Lactic Acid 1.865 Calcium Phosphorus Magnesium Total Bilirubin AST ALT Alkaline Phosphatase Creatine Kinase Troponin I Total Protein Albumin TSH Urine Color Ltyellow Urine Appearance Clear Urine pH 7.0 Ur Specific [place] 1.015 Urine Protein 2+ H Urine Glucose (UA) Negative Urine Ketones Negative Urine Blood Negative Urine Nitrite Negative Urine Bilirubin Negative Urine Urobilinogen Negative Ur Leukocyte Esterase 1+ H Urine RBC 1 Urine WBC 19 Ur Epithelial Cells Few Urine Bacteria Rare Blood Type Antibody Screen 11/22/16 11/23/16 11/23/16 22:38 05:30 05:30 WBC 6.2 RBC 3.92 Hgb 11.3 D Hct 32.5 MCV 82.9 MCHC 34.7 RDW 14.1 Plt Count 194 MPV 9.3 Neutrophils % Lymphocytes % Monocytes % Eosinophils % Basophils % INR PTT (Actin FS) VBG pH POC VBG pCO2 POC VBG pO2 Mixed VBG HCO3 Sodium 144 Potassium 3.4 L D Chloride 104 Carbon Dioxide 31 Anion Gap 9 BUN 40 H Creatinine 1.9 H Creat Clearance w eGFR POC Glucometer 281.72076 Random Glucose 35 L* D Hemoglobin A1c % Lactic Acid Calcium 8.8 Phosphorus 3.9 Magnesium 2.6 H Total Bilirubin AST ALT Alkaline Phosphatase Creatine Kinase 108 Troponin I 0.06 H Total Protein Albumin TSH Urine Color Urine Appearance Urine pH Ur Specific [place] Urine Protein Urine Glucose (UA) Urine Ketones Urine Blood Urine Nitrite Urine Bilirubin Urine Urobilinogen Ur Leukocyte Esterase Urine RBC Urine WBC Ur Epithelial Cells Urine Bacteria Blood Type Antibody Screen 11/23/16 11/23/16 11/23/16 05:30 05:30 06:03 WBC RBC Hgb Hct MCV MCHC RDW Plt Count MPV Neutrophils % Lymphocytes % Monocytes % Eosinophils % Basophils % INR PTT (Actin FS) VBG pH POC VBG pCO2 POC VBG pO2 Mixed VBG HCO3 Sodium Potassium Chloride Carbon Dioxide Anion Gap BUN Creatinine Creat Clearance w eGFR POC Glucometer 73.48906 Random Glucose Hemoglobin A1c % 7.0 H Lactic Acid 1.236 Calcium Phosphorus Magnesium Total Bilirubin AST ALT Alkaline Phosphatase Creatine Kinase Troponin I Total Protein Albumin TSH Urine Color Urine Appearance Urine pH Ur Specific [place] Urine Protein Urine Glucose (UA) Urine Ketones Urine Blood Urine Nitrite Urine Bilirubin Urine Urobilinogen Ur Leukocyte Esterase Urine RBC Urine WBC Ur Epithelial Cells Urine Bacteria Blood Type Antibody Screen 11/23/16 11/23/16 11/23/16 07:45 08:35 08:35 WBC RBC Hgb Hct MCV MCHC RDW Plt Count MPV Neutrophils % Lymphocytes % Monocytes % Eosinophils % Basophils % INR PTT (Actin FS) VBG pH POC VBG pCO2 POC VBG pO2 Mixed VBG HCO3 Sodium Potassium Chloride Carbon Dioxide Anion Gap BUN Creatinine Creat Clearance w eGFR POC Glucometer 90.97522 Random Glucose 128 H D Hemoglobin A1c % Lactic Acid Calcium Phosphorus Magnesium Total Bilirubin AST ALT Alkaline Phosphatase Creatine Kinase Troponin I 0.06 H Cancelled Total Protein Albumin TSH Urine Color Urine Appearance Urine pH Ur Specific [place] Urine Protein Urine Glucose (UA) Urine Ketones Urine Blood Urine Nitrite Urine Bilirubin Urine Urobilinogen Ur Leukocyte Esterase Urine RBC Urine WBC Ur Epithelial Cells Urine Bacteria Blood Type Antibody Screen 11/23/16 11/23/16 11/23/16 11:53 12:21 12:21 WBC RBC Hgb Hct MCV MCHC RDW Plt Count MPV Neutrophils % Lymphocytes % Monocytes % Eosinophils % Basophils % INR PTT (Actin FS) VBG pH POC VBG pCO2 POC VBG pO2 Mixed VBG HCO3 Sodium 138 Cancelled Potassium 3.7 Cancelled Chloride 101 Cancelled Carbon Dioxide 27 Cancelled Anion Gap 10 Cancelled BUN 35 H Cancelled Creatinine 1.9 H Cancelled Creat Clearance w eGFR POC Glucometer > 400 Random Glucose 359 H* D Cancelled Hemoglobin A1c % Lactic Acid Calcium 8.5 Cancelled Phosphorus Magnesium Total Bilirubin AST ALT Alkaline Phosphatase Creatine Kinase Troponin I Total Protein Albumin TSH Urine Color Urine Appearance Urine pH Ur Specific [place] Urine Protein Urine Glucose (UA) Urine Ketones Urine Blood Urine Nitrite Urine Bilirubin Urine Urobilinogen Ur Leukocyte Esterase Urine RBC Urine WBC Ur Epithelial Cells Urine Bacteria Blood Type Antibody Screen IMP: AMS due to Hypoglycemia Hypothermia likely due to Hypoglycemia Lactic acidosis, resolved CAD HTN CKD Blood glucose coverage with short acting insulin PO as tolerated Titrate BP meds Monitor renal function OOB to chair Floor Dr Vu
[2016-11-23] MEDS: ASPIRIN 81 MG CHEWABLE TABLETS PO SCH (21:22)
[2016-11-23] MEDS: ROSUVASTATIN CA 10 MG TABLET (FP) PO SCH (22:00)
[2016-11-24] MEDS: INSULIN SLIDING SCALE (NOVOLOG) 1 VIAL SQ SCH ×3 (06:15→17:44)
--- NOTE | 2016-11-24 08:59 | PN ---
Physical Exam: SUBJECTIVE: Patient seen and examined. resting comfortably in bed, no complaints. OBJECTIVE: Vital Signs Period Temp Pulse Resp BP Sys/Dinero Pulse Ox Last 24 Hr 98 F-98.5 F 60-71 11-22 137-179/58-68 99-99 GENERAL: The patient is awake, alert, in no acute distress. EYES: PERRL, extraocular movements intact, sclera anicteric, conjunctiva clear. ENT: oropharynx clear without exudates, moist mucous membranes. NECK: Trachea midline, full range of motion, supple. LUNGS: Breath sounds equal, clear to auscultation bilaterally, no wheezes, no crackles, no accessory muscle use. HEART: Regular rate and rhythm, S1, S2 without murmur, rub or gallop. ABDOMEN: Soft, nontender, nondistended, normoactive bowel sounds, no guarding EXTREMITIES: 2+ pulses, warm, well-perfused, no edema. NEUROLOGICAL: Normal speech, gait normal. Laboratory Results - last 24 hr 11/23/16 11/23/16 11/23/16 05:30 08:35 08:35 Sodium Potassium Chloride Carbon Dioxide Anion Gap BUN Creatinine POC Glucometer Random Glucose 128 H D Hemoglobin A1c % 7.0 H Calcium Troponin I 0.06 H Cancelled 11/23/16 11/23/16 11/23/16 11:53 12:21 12:21 Sodium 138 Cancelled Potassium 3.7 Cancelled Chloride 101 Cancelled Carbon Dioxide 27 Cancelled Anion Gap 10 Cancelled BUN 35 H Cancelled Creatinine 1.9 H Cancelled POC Glucometer > 400 Random Glucose 359 H* D Cancelled Hemoglobin A1c % Calcium 8.5 Cancelled Troponin I 11/23/16 11/23/16 11/24/16 17:20 21:13 06:08 Sodium Potassium Chloride Carbon Dioxide Anion Gap BUN Creatinine POC Glucometer [phone] 80.43480 176.17139 Random Glucose Hemoglobin A1c % Calcium Troponin I Active Medications Generic Name Dose Route Start Last Admin Trade Name Freq PRN Reason Stop Dose Admin Amlodipine Besylate 10 mg 11/24/16 10:00 Norvasc - PO DAILY NEFTALY Aspirin 81 mg 11/22/16 22:00 11/23/16 21:22 Asa - PO 81 mg HS NEFTALY Administration Clopidogrel Bisulfate 75 mg 11/23/16 10:00 11/23/16 10:08 Plavix - PO 75 mg DAILY NEFTALY Administration Heparin Sodium (Porcine) 5,000 unit 11/23/16 10:15 11/23/16 21:20 Heparin - SQ 5,000 unit BID NEFTALY Administration Hydrochlorothiazide 12.5 mg 11/23/16 08:30 11/23/16 08:50 Hctz - PO 12.5 mg DAILY NEFTALY Administration Insulin Aspart 1 vial 11/23/16 16:30 11/24/16 06:15 Novolog Vial Sliding Scale - SQ 2 units ACHS NEFTALY Administration Protocol Metoprolol Tartrate 25 mg 11/23/16 22:00 11/23/16 21:22 Lopressor - PO 25 mg BID NEFTALY Administration Rosuvastatin Calcium 10 mg 11/22/16 22:00 11/23/16 22:00 Crestor - PO 10 mg HS NEFTALY Administration ASSESSMENT/PLAN: 71 yr old woman with CKD, IDDM II, HTN, bibems for AMS and hypoglycemia, admitted for hypothermia. Neurological AMS back to baseline, patient alert and awake, following commands appropriately , NAD AMS likely metabolic encephalopathy secondary to hypoglycemia ID urine cx likely contaminant monitor off abx consult: Dr. Morris Endocrine BGM improved DM II - BGM ACHS, NISS hold long acting insulin during inpatient stay recommend outpatient endocrine f/u and diabetic teaching, suspicious for poor po intake in elderly with unadjusted insulin dose Cardiovascular HTN - norvasc 5mg po daily, lopressor 25mg po daily, HCTz 12.5mg po daily - as per renal, Dr. kwon, pt would benefit from ACEI given DM, recommend outpatient f/u with PCP for medication optimization CAD/ HLD -- crestor 10mg po daily, ASA, Plavix Renal Cr stable @1.9 CKD likely secondary to DM and HTN replete electrolytes consult: Dr. Kwon, outpatient f/u Diet; diabetic diet DVT; heparin 5000 bid Dispo: AMS/hypothermia/hypoglycemia improved - patient can be monitored on Med- Surg floor Visit type - Emergency Visit Emergency Visit: No - New Patient This patient is new to me today: No - Critical Care Critical Care patient: Yes Total Critical Care Time (in minutes): 37 Critical Care Statement: The care of this patient involved high complexity decision making to prevent further life threatening deterioration of the patient 's condition and/or to evalute & treat vital organ system(s) failure or risk of failure.
--- NOTE | 2016-11-24 09:21 | DS ---
Physical Exam: SUBJECTIVE: Patient seen and examined at bedside in ICU. OBJECTIVE: Vital Signs Period Temp Pulse Resp BP Sys/Dinero Pulse Ox Last 24 Hr 98 F-98.5 F 60-71 11-22 137-179/58-68 99 PHYSICAL EXAM GENERAL: The patient is awake, alert, and fully oriented, in no acute distress. HEAD: Normal with no signs of trauma. EYES: PERRL, extraocular movements intact, sclera anicteric, conjunctiva clear. No ptosis. LUNGS: Breath sounds equal, clear to auscultation bilaterally, no wheezes, no crackles, no accessory muscle use. HEART: Regular rate and rhythm, S1, S2 without murmur, rub or gallop. ABDOMEN: Soft, nontender, nondistended, normoactive bowel sounds, no guarding, no rebound EXTREMITIES: 2+ pulses, warm, well-perfused, no edema. NEUROLOGICAL: Cranial nerves II through XII grossly intact. Normal speech, gait not observed. Laboratory Results - last 24 hr 11/22/16 11/23/16 11/23/16 20:29 05:30 08:35 Sodium Potassium Chloride Carbon Dioxide Anion Gap BUN Creatinine POC Glucometer [phone] Random Glucose 128 H D Hemoglobin A1c % 7.0 H Calcium Troponin I 0.06 H 11/23/16 11/23/16 11/23/16 08:35 11:53 12:21 Sodium 138 Potassium 3.7 Chloride 101 Carbon Dioxide 27 Anion Gap 10 BUN 35 H Creatinine 1.9 H POC Glucometer > 400 Random Glucose 359 H* D Hemoglobin A1c % Calcium 8.5 Troponin I Cancelled 11/23/16 11/23/16 11/23/16 12:21 17:20 21:13 Sodium Cancelled Potassium Cancelled Chloride Cancelled Carbon Dioxide Cancelled Anion Gap Cancelled BUN Cancelled Creatinine Cancelled POC Glucometer [phone] 80.73205 Random Glucose Cancelled Hemoglobin A1c % Calcium Cancelled Troponin I 11/24/16 06:08 Sodium Potassium Chloride Carbon Dioxide Anion Gap BUN Creatinine POC Glucometer [phone] Random Glucose Hemoglobin A1c % Calcium Troponin I HOSPITAL COURSE: Date of Admission:11/22/16 Date of Discharge: 11/24/16 71 year-old female with a PMH of HTN, CAD s/p stent x 1, and IDDM. Admitted for metabolic encephalopathy secondary to hypoglycemia and hypothermia. Metabolic encephalopathy secondary to hypoglycemia IDDM --treated with Amparo huggkev, D5NS --blood glucose levels stabilized, normothermic --mental status back to baseline --Novolog sliding scale coverage Hypothermia, resolved Pyuria --Zosyn x 1 --asymptomatic Lactic acidosis, resolved CAD --continued ASA, Plavix, statin Hypertension --BP elevated but HR in low 60s --increased amlodipine to 10mg --added lisinopril 2.5mg daily --scripts sent Chronic renal insufficiency --Cr 1.9, baseline unknown; last recorded Cr 1.3 six years ago Hypokalemia --repleted Minutes to complete discharge: 35 Discharge Summary Reason For Visit: HYPOTHERMIA Current Active Problems Chronic kidney disease, stage 4 (severe) (Acute) Coronary artery disease (Acute) Diabetes mellitus with insulin therapy (Acute) Hypertension (Acute) Hypoglycemia (Acute) Hypothermia (Acute) Sepsis (Acute) - Instructions Diet, Activity, Other Instructions: Your blood pressure was elevated during your hospital stay. Your amlodipine dose was increased from 5 to 10mg. We also added lisinopril 2.5mg daily to your blood pressure regimen. Prescriptions for amlodipine 10mg and lisinopril 2.5mg have been sent to your pharmacy. Take these medications as directed. It is very important that you follow up with your kidney specialist, Dr. Sanders, within one week of your discharge, to have your blood pressure checked. His contact information is enclosed. Call his office to make an appointment. Return to the emergency department for any new or worsening symptoms. Referrals: Brii Kirkpatrick [Primary Care Provider] - Gisela Little MD [Staff Physician] - 1 Week Disposition: HOME - Home Medications Comprehensive Discharge Medication List: Ambulatory Orders Amlodipine Besylate 5 mg PO DAILY 11/22/16 Aspirin [ASA -] 81 mg PO HS 11/22/16 Clopidogrel Bisulfate [Plavix -] 75 mg PO DAILY 11/22/16 Ergocalciferol (Vitamin D2) [Vitamin D2] 50,000 unit PO 11/22/16 Hydrochlorothiazide [Hctz -] 12.5 mg PO DAILY 11/22/16 Insulin Glargine,Hum.rec.anlog [Lantus Solostar PEN (NF)] 30 units SQ HS Insulin Lispro [Humalog] 0 unit SQ TID 11/22/16 Metoprolol Tartrate 25 mg PO BID 11/22/16 Rosuvastatin Calcium [Crestor] 10 mg PO HS 11/22/16 Sodium Polystyrene Sulfonate [Kalexate] 30 gm PO DAILY 11/22/16 This patient is new to me today: No Emergency Visit: Yes ED Registration Date: 11/22/16 Care time: The patient presented to the Emergency Department on the above date and was hospitalized for further evaluation of their emergent condition. Critical Care patient: No - Discharge Referral Referred to [facility] No
--- NOTE | 2016-11-24 09:36 | PN ---
Progress Note (short form) - Note Progress Note: see resident note for full details doing well no complaints antibiotics stopped yesterday Vital Signs Period Temp Pulse Resp BP Sys/Dinero Pulse Ox Last 24 Hr 98 F-98.5 F 60-71 11-22 137-179/58-68 99 cor-rrr lungs clear abd soft,nt no cvat, no suprapubic tenderness ext no edema CBC, BMP 11/23/16 05:30 11/23/16 12:21 Microbiology 11/22/16 15:44 Blood - Peripheral Venous Blood Culture - Preliminary NO GROWTH OBTAINED AFTER 24 HOURS, INCUBATION TO CONTINUE FOR 4 DAYS. 11/22/16 15:44 Blood - Peripheral Venous Blood Culture - Preliminary NO GROWTH OBTAINED AFTER 24 HOURS, INCUBATION TO CONTINUE FOR 4 DAYS. a/p I called microbiology-urine culture is a contaminant would agree with observing off antibiotics diabetes- hypoglycemia resolved please call back if needed
[2016-11-24] MEDS ORDERED: amLODIPine BESYLATE 10 MG TABLET (FP) PO SCH (10:00)
[2016-11-24] MEDS: METOPROLOL TARTRATE 25 MG TABLET (FP) PO SCH (10:24)
[2016-11-24] MEDS: CLOPIDOGREL BISULFATE 75 MG TABLET (FP) PO SCH (10:24)
[2016-11-24] MEDS: HEPARIN NA (PORCINE) 5,000 UNITS/ML 1ML VIAL SQ SCH (10:24)
[2016-11-24] MEDS: HYDROCHLOROTHIAZIDE 12.5 MG CAPSULE (FP) PO SCH (10:24)
--- NOTE | 2016-11-24 11:16 | PN ---
Progress Note (short form) - Note Progress Note: Renal Follow up for CKD Pt seen and examined at the bedside awake and alert no acute complaints, denies sob, chest pain has good urine output Vital Signs Temperature 97.4 F L 11/24/16 08:00 Pulse Rate 80 11/24/16 10:00 Respiratory Rate 18 11/24/16 10:00 Blood Pressure 167/72 11/24/16 10:00 O2 Sat by Pulse Oximetry (%) 99 11/23/16 20:12 Intake & Output 11/21/16 11/22/16 11/23/16 11/24/16 23:59 23:59 23:59 23:59 Intake Total 500 825 Output Total 1400 Balance 500 -575 Weight 150 lb 148 lb 9 oz 148 lb 2.41 oz Gen: NAD, awake and alert CVS: RRR, no M/R Lungs:CTA Abd: soft NT/ND Ext: no edema, clubbing or cyanosis : no bladder distension CBC, BMP 11/23/16 05:30 11/23/16 12:21 Laboratory Tests 11/23/16 12:21 Calcium 8.5 Current Medications Amlodipine Besylate (Norvasc -) 10 mg PO DAILY [facility] Last Admin: 11/24/16 10:24 Dose: 10 mg Aspirin (Asa -) 81 mg PO HS [facility] Last Admin: 11/23/16 21:22 Dose: 81 mg Clopidogrel Bisulfate (Plavix -) 75 mg PO DAILY [facility] Last Admin: 11/24/16 10:24 Dose: 75 mg Heparin Sodium (Porcine) (Heparin -) 5,000 unit SQ BID [facility] Last Admin: 11/24/16 10:24 Dose: 5,000 unit Hydrochlorothiazide (Hctz -) 12.5 mg PO DAILY [facility] Last Admin: 11/24/16 10:24 Dose: 12.5 mg Insulin Aspart (Novolog Vial Sliding Scale -) 1 vial SQ [facility] PRN Reason: Protocol Last Admin: 11/24/16 06:15 Dose: 2 units Metoprolol Tartrate (Lopressor -) 25 mg PO BID [facility] Last Admin: 11/24/16 10:24 Dose: 25 mg Rosuvastatin Calcium (Crestor -) 10 mg PO HS [facility] Last Admin: 11/23/16 22:00 Dose: 10 mg A/p 71 year old woman with PMhx of CKD stage 3, Hypertension, IDDM presented with hypoglycemia and hypotension. #CKD Stage 3 with proteinuria Renal function stable, outpatient Cr was 1.9 as well Check UPCR pt would benifit from ACEi given DM, CKD but will review outpatient records to ensure that she did not have any prior adverese reactions in the past #Hypoglycemia/Hypotensoin now resolved continue insulin sliding scale #Hypertension contineue Norvasc, metoprolol and amlodpine Thank you Timbo Cisneros DO
[2016-11-24 13:07] VITALS: TEMP 98.3
[2016-11-24] MEDS ORDERED: LISINOPRIL 5 MG TABLET (FP) PO ONE (14:00)
--- NOTE | 2016-11-24 15:02 | PN ---
Teaching Attending Note Name of Resident: Abby Hernandez ATTENDING PHYSICIAN STATEMENT I saw and evaluated the patient. I reviewed the resident's note and discussed the case with the resident. I agree with the resident's findings and plan as documented. SUBJECTIVE: Patient seen and examined in the ICU. Awake and alert. No further episodes of hypoglycemia. No CP or SOB. Intake & Output 11/21/16 11/22/16 11/23/16 11/24/16 23:59 23:59 23:59 23:59 Intake Total 500 825 Output Total 1400 Balance 500 -575 Weight 150 lb 148 lb 9 oz 148 lb 2.41 oz Last Vital Signs Temp Pulse Resp BP Pulse Ox 98.3 F 67 16 164/65 99 11/24/16 12:00 11/24/16 14:39 11/24/16 14:39 11/24/16 14:39 11/24/16 09:00 Active Medications Amlodipine Besylate (Norvasc -) 10 mg PO DAILY [facility] Last Admin: 11/24/16 10:24 Dose: 10 mg Aspirin (Asa -) 81 mg PO HS [facility] Last Admin: 11/23/16 21:22 Dose: 81 mg Clopidogrel Bisulfate (Plavix -) 75 mg PO DAILY [facility] Last Admin: 11/24/16 10:24 Dose: 75 mg Heparin Sodium (Porcine) (Heparin -) 5,000 unit SQ BID [facility] Last Admin: 11/24/16 10:24 Dose: 5,000 unit Hydrochlorothiazide (Hctz -) 12.5 mg PO DAILY [facility] Last Admin: 11/24/16 10:24 Dose: 12.5 mg Insulin Aspart (Novolog Vial Sliding Scale -) 1 vial SQ ACHS [facility] PRN Reason: Protocol Last Admin: 11/24/16 12:35 Dose: 6 units Metoprolol Tartrate (Lopressor -) 25 mg PO BID [facility] Last Admin: 11/24/16 10:24 Dose: 25 mg Rosuvastatin Calcium (Crestor -) 10 mg PO HS [facility] Last Admin: 11/23/16 22:00 Dose: 10 mg GENERAL: The patient is awake, alert, and fully oriented, in no acute distress. HEAD: Normal with no signs of trauma. EYES: PERRL, extraocular movements intact, sclera anicteric, conjunctiva clear. No ptosis. LUNGS: Breath sounds equal, clear to auscultation bilaterally, no wheezes, no crackles, no accessory muscle use. HEART: Regular rate and rhythm, S1, S2 without murmur, rub or gallop. ABDOMEN: Soft, nontender, nondistended, normoactive bowel sounds, no guarding, no rebound EXTREMITIES: 2+ pulses, warm, well-perfused, no edema. NEUROLOGICAL: Cranial nerves II through XII grossly intact. Normal speech, gait not observed. Laboratory Results - last 24 hr 11/22/16 11/23/16 11/23/16 20:29 17:20 21:13 POC Glucometer [phone] 80.50558 11/24/16 11/24/16 06:08 12:27 POC Glucometer 176.59788 [phone] IMP: AMS due to Hypoglycemia Hypothermia likely due to Hypoglycemia Lactic acidosis, resolved CAD HTN CKD Glycemic control with short acting insulin PO as tolerated Titrate BP meds Monitor renal function OOB to chair Floor Dr Vu
[2016-11-24 16:49] VITALS: BP 150/70; PULSE 62
== END 2016-11-24 18:53 | disposition home or self-care (01) | DRG 922 ==
LOC: JER 15:07 → JERBED 17:48 → JICU 11-23 04:08
PROVIDERS: ADMIT Internal Medicine; ATTEND Nurse Practitioner Acute Care
DX: T68.XXXA Hypothermia, initial encounter (principal); G93.41 Metabolic encephalopathy; E87.2 Acidosis; E11.649 Type 2 diabetes mellitus with hypoglycemia without coma; Z79.4 Long term (current) use of insulin; I95.9 Hypotension, unspecified; I12.9 Hypertensive chronic kidney disease with stage 1 through stage 4 chronic kidney disease, or unspecified chronic kidney disease; E11.22 Type 2 diabetes mellitus with diabetic chronic kidney disease; N18.3 Chronic kidney disease, stage 3 (moderate); E87.6 Hypokalemia; E78.5 Hyperlipidemia, unspecified; I25.10 Atherosclerotic heart disease of native coronary artery without angina pectoris; Z98.61 Coronary angioplasty status
CPT/HCPCS: 36415; 71010-TC; 80048; 80053; 81003; 81015; 82550; 82570; 82803; 82947; 83036; 83605; 83735; 84100; 84156; 84443; 84484; 85025; 85027; 85610; 85730; 86850; 86900; 86901; 87040; 87086; 93005; 93010; 99285-25; J1644

== ENCOUNTER 2021-04-27 13:14 | Inpatient (IN) | payer MEDICARE, OTHER ==
[2021-04-27] MEDS ORDERED: ACETAMINOPHEN 325 MG TABLET (FP) PO ONE (14:37)
[2021-04-27 15:05] LABS: BASO % 0.5 % (0-2.0); EOS % 2.1 % (0-4.5); HEMATOCRIT 36.2 % (32.4-45.2); HEMOGLOBIN 12.3 GM/dL (10.7-15.3); LYMPH % 10.1 % (8-40); MEAN CELL VOLUME 85.3 fl (80-96); MONO % 4.6 % (3.8-10.2); NEUT % 82.7 % (42.8-82.8); PLATELET COUNT 172 10^3/uL (134-434); RBC 4.24 M/mm3 (3.60-5.2); RDW 13.6 % (11.6-15.6); WHITE BLOOD COUNT 11.2 K/mm3 (4.0-10.0)
[2021-04-27] MEDS ORDERED: ACETAMINOPHEN 325 MG TABLET (FP) ONE (15:10)
[2021-04-27 15:17] LABS: CHLORIDE 98 mmol/L (98-107); SODIUM 133 mmol/L (136-145)
[2021-04-27 15:19] LABS: CALCIUM 8.6 mg/dL (8.5-10.1)
[2021-04-27 15:20] LABS: ANION GAP 9 MMOL/L (8-16); BLOOD UREA NITROGEN 60.3 mg/dL (7-18); CO2 26 mmol/L (21-32)
[2021-04-27 15:23] LABS: CREATININE 2.7 mg/dL (0.55-1.3); SGOT/AST 35 U/L (15-37); SGPT/ALT 39 U/L (13-61)
[2021-04-27 15:25] LABS: BILIRUBIN,TOTAL 0.6 mg/dL (0.2-1); TOT PROT 7.8 g/dl (6.4-8.2)
[2021-04-27 15:26] LABS: ALK PHOS 132 U/L (45-117)
[2021-04-27 15:53] LABS: GLUCOSE,RANDOM 412 mg/dL (74-106)
[2021-04-27] MEDS ORDERED: SODIUM CHLORIDE 500 ML IV STA (16:01)
[2021-04-27 16:41] LABS: EPI CELLS 2 /uL (0-25.1); HYALINE CASTS 1 /uL (0-3.1); URINE APPEARANCE CLEAR; URINE BACTERIA 8 /uL (0-1359); URINE BILIRUBIN NEGATIVE (NEGATIVE); URINE COLOR YELLOW; URINE GLUCOSE (UA) 2+ (NEGATIVE); URINE KETONE NEGATIVE (NEGATIVE); URINE LEUK ESTERASE TRACE (NEGATIVE); URINE NITRITE NEGATIVE (NEGATIVE); URINE PROTEIN NEGATIVE (NEGATIVE); URINE RBC 4 /uL (0-23.9); URINE UROBILINOGEN 0.2 mg/dL (0.2-1.0); URINE WBC 4 /uL (0-25.8)
[2021-04-27] MEDS ORDERED: morphine CARPU-JECT 2 MG/1 ML DISP.SYRIN IVPUSH ONE (18:27)
[2021-04-27] MEDS ORDERED: morphine SULFATE 4 MG/ML VIAL ONE (19:10)
[2021-04-27] MEDS ORDERED: ASPIRIN 81 MG CHEWABLE TABLETS ONE (21:54)
[2021-04-27] MEDS ORDERED: ATORVASTATIN CA 80 MG TABLET (FP) ONE (21:54)
[2021-04-27] MEDS ORDERED: INSULIN SLIDING SCALE (NOVOLOG) 1 VIAL SQ ONE (21:55)
[2021-04-27] MEDS ORDERED: HEPARIN NA (PORCINE) 5,000 UNITS/ML 1ML VIAL ONE (21:55)
[2021-04-27] MEDS: ATORVASTATIN CA 80 MG TABLET (FP) PO SCH (22:05)
[2021-04-27] MEDS: ASPIRIN 81 MG CHEWABLE TABLETS PO SCH (22:05)
[2021-04-27] MEDS: INSULIN SLIDING SCALE (NOVOLOG) 1 VIAL SQ SCH (22:06)
[2021-04-27] MEDS: SODIUM CHLORIDE 1,000 ML IV SCH (22:06)
[2021-04-27 23:29] VITALS: BMI 24.0
[2021-04-28] MEDS: HEPARIN NA (PORCINE) 5,000 UNITS/ML 1ML VIAL SQ SCH ×3 (05:43→21:20)
[2021-04-28] MEDS: INSULIN SLIDING SCALE (NOVOLOG) 1 VIAL SQ SCH ×4 (06:01→21:21)
[2021-04-28 08:21] LABS: BASO % 0.8 % (0-2.0); EOS % 6.9 % (0-4.5); HEMATOCRIT 30.8 % (32.4-45.2); HEMOGLOBIN 10.8 GM/dL (10.7-15.3); LYMPH % 24.2 % (8-40); MCH 29.7 pg (25.7-33.7); MEAN CELL VOLUME 84.9 fl (80-96); MEAN PLT VOLUME 10.7 fl (7.5-11.1); MONO % 8.7 % (3.8-10.2); NEUT % 59.4 % (42.8-82.8); PLATELET COUNT 155 10^3/uL (134-434); RBC 3.63 M/mm3 (3.60-5.2); RDW 13.7 % (11.6-15.6); WHITE BLOOD COUNT 5.7 K/mm3 (4.0-10.0)
[2021-04-28 08:44] LABS: CALCIUM 8.2 mg/dL (8.5-10.1)
[2021-04-28 08:45] LABS: BLOOD UREA NITROGEN 54.1 mg/dL (7-18); MAGNESIUM 2.9 mg/dL (1.8-2.4)
[2021-04-28 08:48] LABS: CREATININE 2.2 mg/dL (0.55-1.3); PHOSPHOROUS 4.1 mg/dL (2.5-4.9)
[2021-04-28 08:53] LABS: CHOLESTEROL 121 mg/dL (50-200); HDL CHOLESTEROL 46 mg/dL (40-60); LDL CHOLESTEROL (ONLY SJRH) 52 mg/dL (5-100); TRIGLYCERIDES 100 mg/dL (0-150)
[2021-04-28] MEDS: CLOPIDOGREL BISULFATE 75 MG TABLET (FP) PO SCH (10:09)
[2021-04-28] MEDS: amLODIPine BESYLATE 10 MG TABLET (FP) PO SCH (10:09)
[2021-04-28] MEDS: SODIUM CHLORIDE 1,000 ML IV SCH ×2 (19:54→21:22)
[2021-04-28] MEDS: ACETAMINOPHEN 325 MG TABLET (FP) PO PRN (20:08)
[2021-04-28] MEDS: ATORVASTATIN CA 80 MG TABLET (FP) PO SCH (21:21)
[2021-04-28] MEDS: ASPIRIN 81 MG CHEWABLE TABLETS PO SCH (21:21)
[2021-04-28] MEDS ORDERED: INSULIN (LEVEMIR) 100 UNITS/ML UNITS SQ SCH (22:00)
[2021-04-29] MEDS ORDERED: DEXTROSE 50%-WATER - 25 GM/50 ML VIAL IVPUSH ONE (05:34)
[2021-04-29] MEDS ORDERED: DEXTROSE 50%-WATER 25 GM/50 ML DISP.SYRIN ONE (05:44)
[2021-04-29] MEDS: INSULIN SLIDING SCALE (NOVOLOG) 1 VIAL SQ SCH ×4 (06:18→22:59)
[2021-04-29] MEDS: HEPARIN NA (PORCINE) 5,000 UNITS/ML 1ML VIAL SQ SCH ×3 (06:18→22:59)
[2021-04-29 06:24] LABS: CALCIUM 8.1 mg/dL (8.5-10.1)
[2021-04-29 06:25] LABS: BLOOD UREA NITROGEN 41.8 mg/dL (7-18); MAGNESIUM 2.9 mg/dL (1.8-2.4)
[2021-04-29 06:28] LABS: CREATININE 2.2 mg/dL (0.55-1.3); PHOSPHOROUS 3.4 mg/dL (2.5-4.9)
[2021-04-29 06:29] LABS: BILIRUBIN,TOTAL 0.6 mg/dL (0.2-1); TOT PROT 6.2 g/dl (6.4-8.2)
[2021-04-29 06:34] LABS: ALBUMIN 3.2 g/dl (3.4-5.0)
[2021-04-29 08:15] LABS: BASO % 0.8 % (0-2.0); EOS % 5.1 % (0-4.5); HEMOGLOBIN 11.7 GM/dL (10.7-15.3); LYMPH % 13.3 % (8-40); MCH 29.4 pg (25.7-33.7); MCHC 34.3 g/dl (32.0-36.0); MEAN CELL VOLUME 85.6 fl (80-96); MEAN PLT VOLUME 10.7 fl (7.5-11.1); MONO % 7.2 % (3.8-10.2); NEUT % 73.6 % (42.8-82.8); PLATELET COUNT 157 10^3/uL (134-434); RBC 3.97 M/mm3 (3.60-5.2); RDW 13.9 % (11.6-15.6); WHITE BLOOD COUNT 6.7 K/mm3 (4.0-10.0)
[2021-04-29] MEDS: amLODIPine BESYLATE 10 MG TABLET (FP) PO SCH (10:10)
[2021-04-29] MEDS: CLOPIDOGREL BISULFATE 75 MG TABLET (FP) PO SCH (10:10)
[2021-04-29] MEDS: POLYETHYLENE GLYCOL (HEALTHYLAX) 3350 17 GM PACKET PO SCH (11:26)
[2021-04-29] MEDS: LIDOCAINE 5% TOPICAL PATCH TP SCH (11:26)
[2021-04-29] MEDS: oxyCODONE HCL 5 MG TABLET PO PRN (13:55)
[2021-04-29] MEDS: DOCUSATE SODIUM 100 MG CAPSULE (FP) PO SCH ×2 (13:55→22:59)
[2021-04-29] MEDS ORDERED: INSULIN (NOVOLOG) ASPART 100 UNITS/ML 10ML VIAL ONE (17:30)
[2021-04-29] MEDS ORDERED: LIDOCAINE PATCH REMOVAL MC SCH (22:00)
[2021-04-29] MEDS: ATORVASTATIN CA 80 MG TABLET (FP) PO SCH (22:58)
[2021-04-29] MEDS: ASPIRIN 81 MG CHEWABLE TABLETS PO SCH (22:58)
[2021-04-30] MEDS: DOCUSATE SODIUM 100 MG CAPSULE (FP) PO SCH ×2 (06:30→14:10)
[2021-04-30] MEDS: HEPARIN NA (PORCINE) 5,000 UNITS/ML 1ML VIAL SQ SCH ×2 (06:30→14:10)
[2021-04-30] MEDS: INSULIN SLIDING SCALE (NOVOLOG) 1 VIAL SQ SCH ×3 (06:30→17:18)
[2021-04-30] MEDS: ACETAMINOPHEN 325 MG TABLET (FP) PO PRN (06:35)
[2021-04-30 07:08] LABS: BASO % 1.4 % (0-2.0); EOS % 8.6 % (0-4.5); HEMATOCRIT 31.2 % (32.4-45.2); HEMOGLOBIN 10.7 GM/dL (10.7-15.3); LYMPH % 28.4 % (8-40); MCH 29.6 pg (25.7-33.7); MCHC 34.4 g/dl (32.0-36.0); MEAN CELL VOLUME 86.1 fl (80-96); MEAN PLT VOLUME 10.6 fl (7.5-11.1); MONO % 9.6 % (3.8-10.2); PLATELET COUNT 151 10^3/uL (134-434); RBC 3.63 M/mm3 (3.60-5.2); RDW 13.7 % (11.6-15.6); WHITE BLOOD COUNT 5.9 K/mm3 (4.0-10.0)
[2021-04-30 09:12] LABS: CALCIUM 8.4 mg/dL (8.5-10.1)
[2021-04-30 09:13] LABS: ALBUMIN 3.2 g/dl (3.4-5.0); BLOOD UREA NITROGEN 36.2 mg/dL (7-18)
[2021-04-30 09:15] LABS: MAGNESIUM 2.7 mg/dL (1.8-2.4)
[2021-04-30 09:18] LABS: BILIRUBIN,TOTAL 0.8 mg/dL (0.2-1); TOT PROT 6.6 g/dl (6.4-8.2)
[2021-04-30 09:19] VITALS: PULSE 68
[2021-04-30] MEDS: CLOPIDOGREL BISULFATE 75 MG TABLET (FP) PO SCH (10:00)
[2021-04-30] MEDS: POLYETHYLENE GLYCOL (HEALTHYLAX) 3350 17 GM PACKET PO SCH (10:00)
[2021-04-30] MEDS: amLODIPine BESYLATE 10 MG TABLET (FP) PO SCH (10:00)
[2021-04-30] MEDS: LIDOCAINE 5% TOPICAL PATCH TP SCH (10:00)
[2021-04-30] MEDS: oxyCODONE HCL 5 MG TABLET PO PRN (15:26)
[2021-04-30 15:51] VITALS: BP 148/67; TEMP 98.5
== END 2021-04-30 17:26 | DRG 536 ==
LOC: JER 13:14 → JERBED 18:27 → J8W 22:52
PROVIDERS: ADMIT Internal Medicine; ATTEND Nurse Practitioner Family
DX: S32.591A Other specified fracture of right pubis, initial encounter for closed fracture (principal); N18.4 Chronic kidney disease, stage 4 (severe); N17.9 Acute kidney failure, unspecified; E87.1 Hypo-osmolality and hyponatremia; I25.10 Atherosclerotic heart disease of native coronary artery without angina pectoris; E11.22 Type 2 diabetes mellitus with diabetic chronic kidney disease; E11.65 Type 2 diabetes mellitus with hyperglycemia; E78.5 Hyperlipidemia, unspecified; I12.9 Hypertensive chronic kidney disease with stage 1 through stage 4 chronic kidney disease, or unspecified chronic kidney disease; R61 Generalized hyperhidrosis; E11.649 Type 2 diabetes mellitus with hypoglycemia without coma; Z95.1 Presence of aortocoronary bypass graft; W19.XXXA Unspecified fall, initial encounter; Y93.9 Activity, unspecified; Y92.89 Other specified places as the place of occurrence of the external cause; Z98.61 Coronary angioplasty status; Y99.9 Unspecified external cause status; E83.51 Hypocalcemia; E86.0 Dehydration
CPT/HCPCS: 36415; 70450-TC; 71045-TC-FY; 72125-TC; 72192-TC; 73523-TC-FY; 76775-TC; 80048; 80053; 80061; 81003; 82550; 82553; 82962; 83036; 83735; 84100; 84443; 84484; 85025; 87086; 93005; 93010; 93306-TC; 93880-TC; 97116-GP; 97161-GP; 99285-25; C9803; J1644; U0003; U0005

== ENCOUNTER 2021-09-27 10:21 | Emergency (ER) | payer MEDICARE, OTHER ==
[2021-09-27 10:53] VITALS: BMI 21.6
[2021-09-27] MEDS ORDERED: ACETAMINOPHEN 325 MG TABLET (FP) PO ONE (11:38)
[2021-09-27] MEDS ORDERED: LIDOCAINE 5% TOPICAL PATCH TP ONE (11:49)
[2021-09-27] MEDS ORDERED: ACETAMINOPHEN 325 MG TABLET (FP) ONE (12:04)
[2021-09-27] MEDS ORDERED: LIDOCAINE 5% TOPICAL PATCH ONE (12:05)
[2021-09-27 16:32] VITALS: BP 142/72; PULSE 72
[2021-09-27 16:37] VITALS: TEMP 97.4
[2021-09-27] MEDS ORDERED: LIDOCAINE PATCH REMOVAL MC SCH (22:00)
== END 2021-09-27 18:15 | disposition home or self-care (01) ==
LOC: JER 10:21
DX: S32.029A Unspecified fracture of second lumbar vertebra, initial encounter for closed fracture (principal); W22.8XXA Striking against or struck by other objects, initial encounter
CPT/HCPCS: 70450-TC; 72125-TC; 72131-TC; 72192-TC; 93005; 93010; 99284-25

== ENCOUNTER 2022-12-09 13:47 | Observation (INO) | payer MEDICARE, OTHER ==
[2022-12-09 15:49] LABS: BASO % 0.6 % (0-2.0); EOS % 1.2 % (0-4.5); HEMATOCRIT 31.6 % (32.4-45.2); HEMOGLOBIN 10.9 GM/dL (10.7-15.3); MCH 28.1 pg (25.7-33.7); MCHC 34.4 g/dl (32.0-36.0); MEAN CELL VOLUME 81.7 fl (80-96); MEAN PLT VOLUME 9.8 fl (7.5-11.1); MONO % 5.2 % (3.8-10.2); PLATELET COUNT 170 10^3/uL (134-434); RBC 3.86 M/mm3 (3.60-5.2); RDW 15.1 % (11.6-15.6); WHITE BLOOD COUNT 5.3 K/mm3 (4.0-10.0)
[2022-12-09 15:50] LABS: EPI CELLS 3 /uL (0-25.1); HYALINE CASTS 0 /uL (0-3.1); PH,URINE 5.5 (5.0-8.0); URINE APPEARANCE CLEAR; URINE BACTERIA 5774 /uL (0-1359); URINE BILIRUBIN NEGATIVE (NEGATIVE); URINE COLOR YELLOW; URINE GLUCOSE (UA) NEGATIVE (NEGATIVE); URINE KETONE NEGATIVE (NEGATIVE); URINE LEUK ESTERASE 3+ (NEGATIVE); URINE NITRITE NEGATIVE (NEGATIVE); URINE PROTEIN 1+ (NEGATIVE); URINE RBC 14 /uL (0-23.9); URINE UROBILINOGEN 0.2 mg/dL (0.2-1.0); URINE WBC 255 /uL (0-25.8)
[2022-12-09 16:09] LABS: POTASSIUM 4.3 mmol/L (3.5-5.1)
[2022-12-09 16:10] LABS: CALCIUM 8.9 mg/dL (8.5-10.1)
[2022-12-09 16:11] LABS: ALBUMIN 3.7 g/dl (3.4-5.0); BLOOD UREA NITROGEN 38.9 mg/dL (7-18)
[2022-12-09 16:14] LABS: CREATININE 1.9 mg/dL (0.55-1.3)
[2022-12-09 16:16] LABS: BILIRUBIN,TOTAL 0.6 mg/dL (0.2-1); TOT PROT 6.8 g/dl (6.4-8.2)
[2022-12-09] MEDS ORDERED: ASPIRIN 81 MG CHEWABLE TABLETS PO ONE (17:32)
[2022-12-09] MEDS ORDERED: ASPIRIN 81 MG CHEWABLE TABLETS ONE ×2 (17:36→18:04)
[2022-12-09] MEDS ORDERED: CLOPIDOGREL BISULFATE 75 MG TABLET (FP) PO ONE (17:37)
[2022-12-09] MEDS ORDERED: ATORVASTATIN CA 80 MG TABLET (FP) PO ONE (17:37)
[2022-12-09] MEDS ORDERED: CEFTRIAXONE 1,000 MG in DEXTROSE 5%-WATER - 50 ML IVPB ONE (17:42)
[2022-12-09] MEDS ORDERED: ATORVASTATIN CA 80 MG TABLET (FP) ONE (18:03)
[2022-12-09] MEDS ORDERED: CEFTRIAXONE 1 GM/50 ML BAG ONE (18:04)
[2022-12-09] MEDS ORDERED: CLOPIDOGREL BISULFATE 75 MG TABLET (FP) ONE (18:04)
[2022-12-10 00:56] VITALS: BMI 24.7
[2022-12-10 07:43] LABS: BASO % 0.8 % (0-2.0); HEMOGLOBIN 9.9 GM/dL (10.7-15.3); LYMPH % 34.2 % (8-40); MCH 28.6 pg (25.7-33.7); MCHC 35.4 g/dl (32.0-36.0); MEAN CELL VOLUME 80.8 fl (80-96); MEAN PLT VOLUME 9.9 fl (7.5-11.1); MONO % 8.8 % (3.8-10.2); NEUT % 51.2 % (42.8-82.8); PLATELET COUNT 152 10^3/uL (134-434); RBC 3.46 M/mm3 (3.60-5.2); RDW 14.7 % (11.6-15.6); WHITE BLOOD COUNT 4.9 K/mm3 (4.0-10.0)
[2022-12-10 08:00] LABS: POTASSIUM 4.1 mmol/L (3.5-5.1)
[2022-12-10 08:09] LABS: ALBUMIN 3.3 g/dl (3.4-5.0); BLOOD UREA NITROGEN 34.8 mg/dL (7-18); MAGNESIUM 2.2 mg/dL (1.8-2.4); PHOSPHOROUS 2.7 mg/dL (2.5-4.9)
[2022-12-10 08:10] LABS: BILIRUBIN,TOTAL 0.6 mg/dL (0.2-1)
[2022-12-10 08:11] LABS: TOT PROT 6.4 g/dl (6.4-8.2)
[2022-12-10 08:12] LABS: CREATININE 1.8 mg/dL (0.55-1.3)
[2022-12-10] MEDS ORDERED: FAMOTIDINE 20 MG TABLET PO SCH (10:00)
[2022-12-10] MEDS: HEPARIN NA (PORCINE) 5,000 UNITS/ML 1ML VIAL SQ SCH ×2 (10:17→22:00)
[2022-12-10] MEDS: amLODIPine BESYLATE 10 MG TABLET (FP) PO SCH (10:18)
[2022-12-10] MEDS: CLOPIDOGREL BISULFATE 75 MG TABLET (FP) PO SCH (10:18)
[2022-12-10] MEDS: FUROSEMIDE 40 MG TABLET (FP) PO SCH (10:18)
[2022-12-10] MEDS: INSULIN SLIDING SCALE (NOVOLOG) 1 VIAL SQ SCH (12:41)
[2022-12-10] MEDS ORDERED: CEFTRIAXONE 1 GM in DEXTROSE 5%-WATER - 50 ML IVPB SCH (18:00)
[2022-12-10 20:09] VITALS: RESP 20
[2022-12-10] MEDS ORDERED: ATORVASTATIN CA 80 MG TABLET (FP) PO SCH (22:00)
[2022-12-10] MEDS ORDERED: ASPIRIN 81 MG CHEWABLE TABLETS PO SCH (22:00)
[2022-12-11] MEDS: INSULIN SLIDING SCALE (NOVOLOG) 1 VIAL SQ SCH ×4 (00:12→11:32)
[2022-12-11 07:25] LABS: HEMATOCRIT 33.2 % (32.4-45.2); HEMOGLOBIN 11.6 GM/dL (10.7-15.3); MCH 28.4 pg (25.7-33.7); MCHC 34.8 g/dl (32.0-36.0); MEAN CELL VOLUME 81.6 fl (80-96); MEAN PLT VOLUME 9.9 fl (7.5-11.1); PLATELET COUNT 187 10^3/uL (134-434); RBC 4.07 M/mm3 (3.60-5.2); RDW 14.9 % (11.6-15.6); WHITE BLOOD COUNT 5.2 K/mm3 (4.0-10.0)
[2022-12-11 07:30] LABS: POTASSIUM 4.3 mmol/L (3.5-5.1)
[2022-12-11 07:37] LABS: ALBUMIN 3.8 g/dl (3.4-5.0); BLOOD UREA NITROGEN 32.5 mg/dL (7-18); CALCIUM 9.3 mg/dL (8.5-10.1)
[2022-12-11 07:40] LABS: CREATININE 2.1 mg/dL (0.55-1.3); PHOSPHOROUS 3.3 mg/dL (2.5-4.9)
[2022-12-11 07:41] LABS: BILIRUBIN,TOTAL 0.6 mg/dL (0.2-1); TOT PROT 7.3 g/dl (6.4-8.2)
[2022-12-11 08:27] VITALS: PULSE 68
[2022-12-11] MEDS: FUROSEMIDE 40 MG TABLET (FP) PO SCH (09:01)
[2022-12-11] MEDS: HEPARIN NA (PORCINE) 5,000 UNITS/ML 1ML VIAL SQ SCH (09:01)
[2022-12-11] MEDS: CLOPIDOGREL BISULFATE 75 MG TABLET (FP) PO SCH (09:01)
[2022-12-11] MEDS: amLODIPine BESYLATE 10 MG TABLET (FP) PO SCH (09:01)
[2022-12-11 15:57] VITALS: BP 146/63; TEMP 98.3
== END 2022-12-11 16:56 | disposition home or self-care (01) ==
LOC: JER 13:47 → INTOOBSV 17:33 → JERBED 17:33 → J4W 23:53
PROVIDERS: ADMIT Internal Medicine; ATTEND Internal Medicine
PROC: 3E03329 Introduction of Other Anti-infective into Peripheral Vein, Percutaneous Approach (ICD-10-PCS; principal; 2022-12-09)
PROC: 3E023GC Introduction of Other Therapeutic Substance into Muscle, Percutaneous Approach (ICD-10-PCS; 2022-12-09)
DX: N39.0 Urinary tract infection, site not specified (principal); E11.649 Type 2 diabetes mellitus with hypoglycemia without coma; I25.10 Atherosclerotic heart disease of native coronary artery without angina pectoris; I11.9 Hypertensive heart disease without heart failure; Z91.011 Allergy to milk products; E78.5 Hyperlipidemia, unspecified; E11.22 Type 2 diabetes mellitus with diabetic chronic kidney disease; I13.0 Hypertensive heart and chronic kidney disease with heart failure and stage 1 through stage 4 chronic kidney disease, or unspecified chronic kidney disease; N18.9 Chronic kidney disease, unspecified; I50.9 Heart failure, unspecified
CPT/HCPCS: 0241U-QW; 36415; 71045-TC-FY; 80053; 81003; 82962; 83036; 83735; 84100; 84484; 85025; 85027; 87086; 87186; 93005; 93010; 96365; 96372; 99285-25; G0378; J1644

== ENCOUNTER 2023-05-07 10:26 | Inpatient (IN) | payer MEDICARE, OTHER ==
[2023-05-07 12:29] LABS: INR 1.04 (0.83-1.09); PROTHROMBIN TIME (PATIENT) 12.1 SEC (9.7-13.0)
[2023-05-07 12:32] LABS: ACTIVATED PTT 29.9 SECONDS (25.2-36.5)
[2023-05-07 12:49] LABS: POTASSIUM 4.3 mmol/L (3.5-5.1)
[2023-05-07 12:51] LABS: ALBUMIN 2.4 g/dl (3.4-5.0); BLOOD UREA NITROGEN 91.3 mg/dL (7-18); CALCIUM 7.9 mg/dL (8.5-10.1)
[2023-05-07 12:54] LABS: CREATININE 5.2 mg/dL (0.55-1.3)
[2023-05-07 12:56] LABS: BILIRUBIN,TOTAL 1.4 mg/dL (0.2-1); TOT PROT 6.4 g/dl (6.4-8.2)
[2023-05-07 13:14] LABS: HEMOGLOBIN 8.9 GM/dL (10.7-15.3); MCH 26.8 pg (25.7-33.7); MEAN CELL VOLUME 81.4 fl (80-96); MEAN PLT VOLUME 9.7 fl (7.5-11.1); PLATELET COUNT 189 10^3/uL (134-434); RBC 3.32 M/mm3 (3.60-5.2); RDW 16.2 % (11.6-15.6)
[2023-05-07 14:20] LABS: ANISOCYTOSIS 3+; MACROCYTOSIS 0
[2023-05-07 14:59] LABS: EPI CELLS 2 /uL (0-25.1); HYALINE CASTS 1 /uL (0-3.1); PH,URINE 5.5 (5.0-8.0); URINE APPEARANCE CLOUDY; URINE BACTERIA 6701 /uL (0-1359); URINE BILIRUBIN NEGATIVE (NEGATIVE); URINE COLOR YELLOW; URINE GLUCOSE (UA) NEGATIVE (NEGATIVE); URINE KETONE NEGATIVE (NEGATIVE); URINE LEUK ESTERASE 3+ (NEGATIVE); URINE NITRITE NEGATIVE (NEGATIVE); URINE PROTEIN 1+ (NEGATIVE); URINE UROBILINOGEN 0.2 mg/dL (0.2-1.0); URINE WBC 475 /uL (0-25.8)
[2023-05-07 15:15] LABS: URINE CRYSTALS NEGATIVE /hpf; URINE RBC 19.5 /uL (0-23.9)
[2023-05-07] MEDS ORDERED: CEFTRIAXONE 1 GM in DEXTROSE 5%-WATER - 100 ML IVPB ONE (15:42)
[2023-05-07] MEDS ORDERED: CEFTRIAXONE 1 GM/50 ML BAG ONE (15:46)
[2023-05-07] MEDS ORDERED: SODIUM CHLORIDE 0.9% 500 ML INFUS.BAG IV ONE (16:04)
[2023-05-07] MEDS: SODIUM CHLORIDE 1,000 ML IV SCH (16:37)
[2023-05-07] MEDS ORDERED: HYDROmorphone HCl 2 MG/ML VIAL IVPUSH PRN (17:14)
[2023-05-07] MEDS: HEPARIN NA (PORCINE) 5,000 UNITS/ML 1ML VIAL SQ SCH (23:10)
[2023-05-07] MEDS: INSULIN (LEVEMIR) 100 UNITS/ML UNITS SQ SCH (23:11)
[2023-05-07] MEDS: INSULIN (NOVOLOG) ASPART 100 UNITS/ML 10ML VIAL SQ SCH (23:16)
[2023-05-08] MEDS: SODIUM CHLORIDE 1,000 ML IV SCH ×2 (02:14→16:30)
[2023-05-08] MEDS: INSULIN (LEVEMIR) 100 UNITS/ML UNITS SQ SCH ×3 (02:15→22:29)
[2023-05-08] MEDS: HEPARIN NA (PORCINE) 5,000 UNITS/ML 1ML VIAL SQ SCH ×3 (05:58→22:23)
[2023-05-08] MEDS: INSULIN (NOVOLOG) ASPART 100 UNITS/ML 10ML VIAL SQ SCH ×4 (06:01→22:29)
[2023-05-08] MEDS: FAMOTIDINE 20 MG TABLET PO SCH (09:26)
[2023-05-08] MEDS: ASPIRIN COATED 81 MG TABLET.EC PO SCH (09:26)
[2023-05-08] MEDS: CEFTRIAXONE 1 GM in DEXTROSE 5%-WATER - 50 ML IVPB SCH (09:26)
[2023-05-08] MEDS: CLOPIDOGREL BISULFATE 75 MG TABLET (FP) PO SCH (09:26)
[2023-05-08 09:36] LABS: BASO % 0.4 % (0-2.0); EOS % 0.8 % (0-4.5); HEMATOCRIT 24.7 % (32.4-45.2); HEMOGLOBIN 8.1 GM/dL (10.7-15.3); LYMPH % 6.9 % (8-40); MCH 26.9 pg (25.7-33.7); MCHC 32.9 g/dl (32.0-36.0); MEAN CELL VOLUME 81.7 fl (80-96); MEAN PLT VOLUME 9.3 fl (7.5-11.1); MONO % 8.6 % (3.8-10.2); NEUT % 83.3 % (42.8-82.8); PLATELET COUNT 195 10^3/uL (134-434); RBC 3.02 M/mm3 (3.60-5.2); RDW 16.1 % (11.6-15.6)
[2023-05-08 11:35] LABS: ALBUMIN 2.1 g/dl (3.4-5.0); BILIRUBIN,TOTAL 1.2 mg/dL (0.2-1); BLOOD UREA NITROGEN 92.7 mg/dL (7-18); CALCIUM 7.4 mg/dL (8.5-10.1); CREATININE 5.4 mg/dL (0.55-1.3); MAGNESIUM 2.2 mg/dL (1.8-2.4); PHOSPHOROUS 4.6 mg/dL (2.5-4.9); POTASSIUM 3.9 mmol/L (3.5-5.1); TOT PROT 5.7 g/dl (6.4-8.2)
[2023-05-08] MEDS ORDERED: INSULIN (NOVOLOG) ASPART 100 UNITS/ML 10ML VIAL ONE ×3 (11:39→18:06)
[2023-05-08 13:41] LABS: BILIRUBIN,DIRECT 0.9 mg/dL (0.0-0.2)
[2023-05-08 17:00] LABS: HEMATOCRIT 26.8 % (32.4-45.2); HEMOGLOBIN 9.1 GM/dL (10.7-15.3); MCH 27.6 pg (25.7-33.7); MCHC 34.1 g/dl (32.0-36.0); MEAN CELL VOLUME 80.9 fl (80-96); MEAN PLT VOLUME 9.2 fl (7.5-11.1); PLATELET COUNT 215 10^3/uL (134-434); RBC 3.31 M/mm3 (3.60-5.2); RDW 16.4 % (11.6-15.6)
[2023-05-08 17:55] LABS: ALBUMIN 2.1 g/dl (3.4-5.0); BILIRUBIN,DIRECT 0.8 mg/dL (0.0-0.2); BILIRUBIN,TOTAL 1.1 mg/dL (0.2-1); BLOOD UREA NITROGEN 89.7 mg/dL (7-18); CALCIUM 7.2 mg/dL (8.5-10.1); CREATININE 5.4 mg/dL (0.55-1.3); POTASSIUM 3.7 mmol/L (3.5-5.1)
[2023-05-08] MEDS ORDERED: PATIENT'S OWN MEDICATION (NON-FORMULARY) (Insulin Glargine,Hum.Rec.Anlog [Insulin Glargine SQ SCH (22:00)
[2023-05-08] MEDS: SODIUM BICARBONATE 650 MG TABLET PO SCH (22:23)
[2023-05-09] MEDS: HEPARIN NA (PORCINE) 5,000 UNITS/ML 1ML VIAL SQ SCH ×3 (06:19→21:30)
[2023-05-09] MEDS: INSULIN (LEVEMIR) 100 UNITS/ML UNITS SQ SCH (06:22)
[2023-05-09] MEDS: INSULIN (NOVOLOG) ASPART 100 UNITS/ML 10ML VIAL SQ SCH ×4 (06:22→21:32)
[2023-05-09] MEDS: FAMOTIDINE 20 MG TABLET PO SCH (09:47)
[2023-05-09] MEDS: ASPIRIN COATED 81 MG TABLET.EC PO SCH (09:47)
[2023-05-09] MEDS: CEFTRIAXONE 1 GM in DEXTROSE 5%-WATER - 50 ML IVPB SCH (09:47)
[2023-05-09] MEDS: SODIUM BICARBONATE 650 MG TABLET PO SCH ×2 (09:47→21:31)
[2023-05-09] MEDS: CLOPIDOGREL BISULFATE 75 MG TABLET (FP) PO SCH (09:47)
[2023-05-09] MEDS ORDERED: INSULIN (NOVOLOG) ASPART 100 UNITS/ML 10ML VIAL ONE ×3 (11:20→21:09)
[2023-05-09 11:42] LABS: POTASSIUM 3.9 mmol/L (3.5-5.1)
[2023-05-09 11:44] LABS: CALCIUM 7.7 mg/dL (8.5-10.1)
[2023-05-09 11:45] LABS: ALBUMIN 2.1 g/dl (3.4-5.0); BLOOD UREA NITROGEN 85.7 mg/dL (7-18)
[2023-05-09 11:47] LABS: BILIRUBIN,DIRECT 0.6 mg/dL (0.0-0.2)
[2023-05-09 11:48] LABS: CREATININE 4.9 mg/dL (0.55-1.3)
[2023-05-09 11:49] LABS: BILIRUBIN,TOTAL 0.8 mg/dL (0.2-1); TOT PROT 6.1 g/dl (6.4-8.2)
[2023-05-09 15:35] LABS: HEMATOCRIT 26.4 % (32.4-45.2); HEMOGLOBIN 8.6 GM/dL (10.7-15.3); MCH 26.8 pg (25.7-33.7); MCHC 32.6 g/dl (32.0-36.0); MEAN CELL VOLUME 82.5 fl (80-96); MEAN PLT VOLUME 9.3 fl (7.5-11.1); PLATELET COUNT 236 10^3/uL (134-434); RDW 16.7 % (11.6-15.6); WHITE BLOOD COUNT 11.6 K/mm3 (4.0-10.0)
[2023-05-09] MEDS: SODIUM CHLORIDE 1,000 ML IV SCH (16:57)
[2023-05-10] MEDS: HEPARIN NA (PORCINE) 5,000 UNITS/ML 1ML VIAL SQ SCH ×3 (06:45→21:24)
[2023-05-10] MEDS: INSULIN (NOVOLOG) ASPART 100 UNITS/ML 10ML VIAL SQ SCH ×4 (06:50→21:28)
[2023-05-10] MEDS: amLODIPine BESYLATE 10 MG TABLET (FP) PO SCH (10:17)
[2023-05-10] MEDS: INSULIN (LEVEMIR) 100 UNITS/ML UNITS SQ SCH (10:17)
[2023-05-10] MEDS: ASPIRIN 81 MG CHEWABLE TABLETS PO SCH (10:17)
[2023-05-10] MEDS: SODIUM BICARBONATE 650 MG TABLET PO SCH ×2 (10:17→21:24)
[2023-05-10] MEDS: CLOPIDOGREL BISULFATE 75 MG TABLET (FP) PO SCH (10:17)
[2023-05-10] MEDS: FAMOTIDINE 20 MG TABLET PO SCH (10:17)
[2023-05-10] MEDS: CEFTRIAXONE 1 GM in DEXTROSE 5%-WATER - 50 ML IVPB SCH (10:17)
[2023-05-10 12:08] LABS: BILIRUBIN,DIRECT 0.3 mg/dL (0.0-0.2); BILIRUBIN,TOTAL 0.6 mg/dL (0.2-1); BLOOD UREA NITROGEN 69.8 mg/dL (7-18); CALCIUM 7.8 mg/dL (8.5-10.1); CREATININE 4.4 mg/dL (0.55-1.3); POTASSIUM 3.9 mmol/L (3.5-5.1)
[2023-05-10] MEDS ORDERED: INSULIN (NOVOLOG) ASPART 100 UNITS/ML 10ML VIAL ONE (16:32)
[2023-05-10] MEDS: SODIUM CHLORIDE 1,000 ML IV SCH (16:42)
[2023-05-11] MEDS: HEPARIN NA (PORCINE) 5,000 UNITS/ML 1ML VIAL SQ SCH ×3 (06:17→21:36)
[2023-05-11] MEDS: INSULIN (NOVOLOG) ASPART 100 UNITS/ML 10ML VIAL SQ SCH ×4 (06:20→21:42)
[2023-05-11 08:57] LABS: HEMATOCRIT 25.5 % (32.4-45.2); HEMOGLOBIN 8.5 GM/dL (10.7-15.3); MCH 27.6 pg (25.7-33.7); MCHC 33.2 g/dl (32.0-36.0); MEAN PLT VOLUME 9.1 fl (7.5-11.1); PLATELET COUNT 295 10^3/uL (134-434); RBC 3.07 M/mm3 (3.60-5.2); RDW 16.3 % (11.6-15.6); WHITE BLOOD COUNT 9.7 K/mm3 (4.0-10.0)
[2023-05-11 09:34] LABS: ALBUMIN 2.1 g/dl (3.4-5.0); BILIRUBIN,DIRECT 0.3 mg/dL (0.0-0.2); BILIRUBIN,TOTAL 0.5 mg/dL (0.2-1); BLOOD UREA NITROGEN 66.8 mg/dL (7-18); CALCIUM 7.8 mg/dL (8.5-10.1); CREATININE 3.8 mg/dL (0.55-1.3); POTASSIUM 4.1 mmol/L (3.5-5.1); TOT PROT 6.2 g/dl (6.4-8.2)
[2023-05-11] MEDS: ASPIRIN 81 MG CHEWABLE TABLETS PO SCH (10:43)
[2023-05-11] MEDS: amLODIPine BESYLATE 10 MG TABLET (FP) PO SCH (10:43)
[2023-05-11] MEDS: SODIUM BICARBONATE 650 MG TABLET PO SCH ×2 (10:43→21:37)
[2023-05-11] MEDS: CEFTRIAXONE 1 GM in DEXTROSE 5%-WATER - 50 ML IVPB SCH (10:43)
[2023-05-11] MEDS: CLOPIDOGREL BISULFATE 75 MG TABLET (FP) PO SCH (10:43)
[2023-05-11] MEDS: FAMOTIDINE 20 MG TABLET PO SCH (10:43)
[2023-05-11] MEDS: INSULIN (LEVEMIR) 100 UNITS/ML UNITS SQ SCH (10:46)
[2023-05-11] MEDS: SODIUM CHLORIDE 1,000 ML IV SCH (16:41)
[2023-05-12] MEDS ORDERED: ALBUTEROL SO4 2.5/IPRATROPIUM 0.5 INH SOL 3 ML VIAL.NEB. NEB ONE ×2 (05:08→17:06)
[2023-05-12] MEDS: HEPARIN NA (PORCINE) 5,000 UNITS/ML 1ML VIAL SQ SCH ×3 (06:24→21:21)
[2023-05-12] MEDS: INSULIN (NOVOLOG) ASPART 100 UNITS/ML 10ML VIAL SQ SCH ×4 (06:26→21:23)
[2023-05-12] MEDS: INSULIN (LEVEMIR) 100 UNITS/ML UNITS SQ SCH (09:31)
[2023-05-12] MEDS: CEFTRIAXONE 1 GM in DEXTROSE 5%-WATER - 50 ML IVPB SCH (09:55)
[2023-05-12] MEDS: amLODIPine BESYLATE 10 MG TABLET (FP) PO SCH (09:56)
[2023-05-12] MEDS: FAMOTIDINE 20 MG TABLET PO SCH (09:56)
[2023-05-12] MEDS: SODIUM BICARBONATE 650 MG TABLET PO SCH ×2 (09:56→21:21)
[2023-05-12] MEDS: ASPIRIN 81 MG CHEWABLE TABLETS PO SCH (09:56)
[2023-05-12] MEDS: CLOPIDOGREL BISULFATE 75 MG TABLET (FP) PO SCH (09:56)
[2023-05-12 10:00] LABS: HEMATOCRIT 26.7 % (32.4-45.2); HEMOGLOBIN 8.5 GM/dL (10.7-15.3); MCH 26.7 pg (25.7-33.7); MCHC 31.7 g/dl (32.0-36.0); MEAN CELL VOLUME 84.3 fl (80-96); MEAN PLT VOLUME 9.2 fl (7.5-11.1); PLATELET COUNT 315 10^3/uL (134-434); RBC 3.16 M/mm3 (3.60-5.2); RDW 16.6 % (11.6-15.6); WHITE BLOOD COUNT 10.8 K/mm3 (4.0-10.0)
[2023-05-12 11:15] LABS: BLOOD UREA NITROGEN 55.6 mg/dL (7-18); CALCIUM 8.3 mg/dL (8.5-10.1); CREATININE 3.3 mg/dL (0.55-1.3); POTASSIUM 4.3 mmol/L (3.5-5.1)
[2023-05-12] MEDS ORDERED: SODIUM CHLORIDE 0.45% 1,000 ML IV SCH (12:45)
[2023-05-12] MEDS ORDERED: methylPREDNISolone NA SUCC 40 MG/1 ML VIAL IVPUSH ONE (17:07)
[2023-05-12] MEDS ORDERED: INSULIN (NOVOLOG) ASPART 100 UNITS/ML 10ML VIAL ONE (21:03)
[2023-05-13] MEDS: HEPARIN NA (PORCINE) 5,000 UNITS/ML 1ML VIAL SQ SCH ×3 (06:30→21:12)
[2023-05-13] MEDS: INSULIN (NOVOLOG) ASPART 100 UNITS/ML 10ML VIAL SQ SCH ×4 (06:32→22:56)
[2023-05-13] MEDS ORDERED: FUROSEMIDE 40 MG/4 ML INJECTABLE VIAL IVPUSH ONE ×2 (08:50→13:00)
[2023-05-13] MEDS ORDERED: ALBUTEROL SO4 2.5/IPRATROPIUM 0.5 INH SOL 3 ML VIAL.NEB. NEB ONE (09:00)
[2023-05-13 09:01] LABS: HEMATOCRIT 25.9 % (32.4-45.2); HEMOGLOBIN 8.6 GM/dL (10.7-15.3); MCH 27.3 pg (25.7-33.7); MCHC 33.2 g/dl (32.0-36.0); MEAN CELL VOLUME 82.4 fl (80-96); PLATELET COUNT 331 10^3/uL (134-434); RBC 3.14 M/mm3 (3.60-5.2); RDW 16.7 % (11.6-15.6); WHITE BLOOD COUNT 7.5 K/mm3 (4.0-10.0)
[2023-05-13 09:39] LABS: POTASSIUM 4.5 mmol/L (3.5-5.1)
[2023-05-13 09:41] LABS: CALCIUM 9.5 mg/dL (8.5-10.1)
[2023-05-13 09:42] LABS: BLOOD UREA NITROGEN 59.4 mg/dL (7-18)
[2023-05-13 09:45] LABS: CREATININE 3.4 mg/dL (0.55-1.3)
[2023-05-13 09:46] LABS: BILIRUBIN,TOTAL 0.8 mg/dL (0.2-1)
[2023-05-13 09:47] LABS: TOT PROT 7.3 g/dl (6.4-8.2)
[2023-05-13 09:48] LABS: ALBUMIN 2.7 g/dl (3.4-5.0)
[2023-05-13] MEDS: ASPIRIN 81 MG CHEWABLE TABLETS PO SCH (10:17)
[2023-05-13] MEDS: amLODIPine BESYLATE 10 MG TABLET (FP) PO SCH (10:18)
[2023-05-13] MEDS: FAMOTIDINE 20 MG TABLET PO SCH (10:19)
[2023-05-13] MEDS: CLOPIDOGREL BISULFATE 75 MG TABLET (FP) PO SCH (10:19)
[2023-05-13] MEDS: SODIUM BICARBONATE 650 MG TABLET PO SCH ×2 (10:21→21:11)
[2023-05-13] MEDS: CEFTRIAXONE 1 GM in DEXTROSE 5%-WATER - 50 ML IVPB SCH (10:21)
[2023-05-13] MEDS: INSULIN (LEVEMIR) 100 UNITS/ML UNITS SQ SCH (10:42)
[2023-05-13] MEDS ORDERED: INSULIN (NOVOLOG) ASPART 100 UNITS/ML 10ML VIAL ONE ×3 (11:43→22:54)
[2023-05-13] MEDS ORDERED: methylPREDNISolone NA SUCC 40 MG/1 ML VIAL IVPUSH ONE (19:30)
[2023-05-13] MEDS: ALBUTEROL SO4 2.5/IPRATROPIUM 0.5 INH SOL 3 ML VIAL.NEB. NEB PRN (23:54)
[2023-05-14] MEDS: HEPARIN NA (PORCINE) 5,000 UNITS/ML 1ML VIAL SQ SCH ×3 (06:16→21:19)
[2023-05-14] MEDS: INSULIN (NOVOLOG) ASPART 100 UNITS/ML 10ML VIAL SQ SCH ×4 (06:28→21:18)
[2023-05-14] MEDS: ALBUTEROL SO4 2.5/IPRATROPIUM 0.5 INH SOL 3 ML VIAL.NEB. NEB PRN ×4 (06:36→20:32)
[2023-05-14] MEDS: CEFTRIAXONE 1 GM in DEXTROSE 5%-WATER - 50 ML IVPB SCH (09:50)
[2023-05-14] MEDS: FAMOTIDINE 20 MG TABLET PO SCH (09:51)
[2023-05-14] MEDS: INSULIN (LEVEMIR) 100 UNITS/ML UNITS SQ SCH (09:51)
[2023-05-14] MEDS: SODIUM BICARBONATE 650 MG TABLET PO SCH ×2 (09:51→21:19)
[2023-05-14] MEDS: ASPIRIN 81 MG CHEWABLE TABLETS PO SCH (09:51)
[2023-05-14] MEDS: amLODIPine BESYLATE 10 MG TABLET (FP) PO SCH (09:51)
[2023-05-14] MEDS: CLOPIDOGREL BISULFATE 75 MG TABLET (FP) PO SCH (09:51)
[2023-05-14] MEDS ORDERED: methylPREDNISolone NA SUCC 40 MG/1 ML VIAL IVPUSH SCH (10:00)
[2023-05-14] MEDS ORDERED: INSULIN (NOVOLOG) ASPART 100 UNITS/ML 10ML VIAL ONE (11:57)
[2023-05-14 12:41] LABS: HEMATOCRIT 23.8 % (32.4-45.2); HEMOGLOBIN 7.5 GM/dL (10.7-15.3); MCH 26.9 pg (25.7-33.7); MCHC 31.5 g/dl (32.0-36.0); MEAN CELL VOLUME 85.3 fl (80-96); MEAN PLT VOLUME 9.2 fl (7.5-11.1); PLATELET COUNT 336 10^3/uL (134-434); RBC 2.79 M/mm3 (3.60-5.2); WHITE BLOOD COUNT 10.2 K/mm3 (4.0-10.0)
[2023-05-14] MEDS ORDERED: FUROSEMIDE 40 MG TABLET (FP) PO ONE (13:00)
[2023-05-14 13:16] LABS: POTASSIUM 4.9 mmol/L (3.5-5.1)
[2023-05-14 13:20] LABS: CALCIUM 8.9 mg/dL (8.5-10.1)
[2023-05-14 13:21] LABS: ALBUMIN 2.8 g/dl (3.4-5.0); BLOOD UREA NITROGEN 65.2 mg/dL (7-18)
[2023-05-14 13:24] LABS: CREATININE 3.7 mg/dL (0.55-1.3)
[2023-05-14 13:25] LABS: BILIRUBIN,TOTAL 0.8 mg/dL (0.2-1)
[2023-05-14 13:26] LABS: TOT PROT 6.9 g/dl (6.4-8.2)
[2023-05-14] MEDS ORDERED: FUROSEMIDE 40 MG/4 ML INJECTABLE VIAL IVPUSH ONE (15:13)
[2023-05-15] MEDS: HEPARIN NA (PORCINE) 5,000 UNITS/ML 1ML VIAL SQ SCH ×3 (06:16→22:22)
[2023-05-15] MEDS: INSULIN (LEVEMIR) 100 UNITS/ML UNITS SQ SCH (06:16)
[2023-05-15] MEDS: INSULIN (NOVOLOG) ASPART 100 UNITS/ML 10ML VIAL SQ SCH ×4 (06:18→22:28)
[2023-05-15] MEDS ORDERED: INSULIN (LEVEMIR) 100 UNITS/ML UNITS SQ SCH ×2 (07:00)
[2023-05-15 07:47] LABS: HEMATOCRIT 23.8 % (32.4-45.2); HEMOGLOBIN 7.4 GM/dL (10.7-15.3); MCH 26.6 pg (25.7-33.7); MCHC 31.1 g/dl (32.0-36.0); MEAN CELL VOLUME 85.4 fl (80-96); MEAN PLT VOLUME 8.9 fl (7.5-11.1); PLATELET COUNT 350 10^3/uL (134-434); RBC 2.79 M/mm3 (3.60-5.2); RDW 17.2 % (11.6-15.6); WHITE BLOOD COUNT 11.4 K/mm3 (4.0-10.0)
[2023-05-15 08:02] LABS: POTASSIUM 5.1 mmol/L (3.5-5.1)
[2023-05-15] MEDS: ALBUTEROL SO4 2.5/IPRATROPIUM 0.5 INH SOL 3 ML VIAL.NEB. NEB PRN ×2 (08:10→20:01)
[2023-05-15 08:15] LABS: BLOOD UREA NITROGEN 73.4 mg/dL (7-18); CALCIUM 8.8 mg/dL (8.5-10.1)
[2023-05-15 08:18] LABS: CREATININE 3.5 mg/dL (0.55-1.3)
[2023-05-15 08:19] LABS: BILIRUBIN,TOTAL 0.5 mg/dL (0.2-1); TOT PROT 6.9 g/dl (6.4-8.2)
[2023-05-15] MEDS: ASPIRIN 81 MG CHEWABLE TABLETS PO SCH (10:33)
[2023-05-15] MEDS: SODIUM BICARBONATE 650 MG TABLET PO SCH ×2 (10:33→22:22)
[2023-05-15] MEDS: FAMOTIDINE 20 MG TABLET PO SCH (10:33)
[2023-05-15] MEDS: CLOPIDOGREL BISULFATE 75 MG TABLET (FP) PO SCH (10:33)
[2023-05-15] MEDS: amLODIPine BESYLATE 10 MG TABLET (FP) PO SCH (10:33)
[2023-05-15] MEDS ORDERED: DEXAMETHASONE SOD PHOSPHATE 10 MG/1 ML VIAL IVPUSH ONE (13:30)
[2023-05-16] MEDS: HEPARIN NA (PORCINE) 5,000 UNITS/ML 1ML VIAL SQ SCH ×3 (05:34→21:33)
[2023-05-16] MEDS: INSULIN (NOVOLOG) ASPART 100 UNITS/ML 10ML VIAL SQ SCH ×4 (07:18→21:34)
[2023-05-16] MEDS: INSULIN (LEVEMIR) 100 UNITS/ML UNITS SQ SCH (07:18)
[2023-05-16 08:14] LABS: HEMATOCRIT 28.7 % (32.4-45.2); HEMOGLOBIN 9.6 GM/dL (10.7-15.3); MCHC 33.5 g/dl (32.0-36.0); MEAN CELL VOLUME 83.6 fl (80-96); MEAN PLT VOLUME 9.1 fl (7.5-11.1); PLATELET COUNT 316 10^3/uL (134-434); RBC 3.44 M/mm3 (3.60-5.2); RDW 16.5 % (11.6-15.6); WHITE BLOOD COUNT 8.6 K/mm3 (4.0-10.0)
[2023-05-16 08:46] LABS: POTASSIUM 5.4 mmol/L (3.5-5.1)
[2023-05-16 08:48] LABS: BLOOD UREA NITROGEN 75.7 mg/dL (7-18); CALCIUM 8.4 mg/dL (8.5-10.1); MAGNESIUM 2.4 mg/dL (1.8-2.4)
[2023-05-16 08:52] LABS: CREATININE 3.6 mg/dL (0.55-1.3)
[2023-05-16 08:56] LABS: ANISOCYTOSIS 0; HELMET CELLS 0; HOWELL-JOLLY BODIES 0; MACROCYTOSIS 0; OVALOCYTE 0; ROULEAU 0; SICKELED CELLS 0; TARGET CELLS 0; TEAR DROP CELLS 0; TOXIC GRANULATION 0
[2023-05-16] MEDS: ALBUTEROL SO4 2.5/IPRATROPIUM 0.5 INH SOL 3 ML VIAL.NEB. NEB PRN ×2 (09:00→15:40)
[2023-05-16] MEDS ORDERED: SODIUM ZIRCONIUM CYCLOSILICATE (LOKELMA) 5 GM PACKET PO SCH (10:00)
[2023-05-16] MEDS: FAMOTIDINE 20 MG TABLET PO SCH (10:48)
[2023-05-16] MEDS: amLODIPine BESYLATE 10 MG TABLET (FP) PO SCH (10:48)
[2023-05-16] MEDS: SODIUM BICARBONATE 650 MG TABLET PO SCH ×2 (10:48→21:33)
[2023-05-16] MEDS: ASPIRIN 81 MG CHEWABLE TABLETS PO SCH (10:48)
[2023-05-16] MEDS: CLOPIDOGREL BISULFATE 75 MG TABLET (FP) PO SCH (10:48)
[2023-05-16] MEDS: SODIUM ZIRCONIUM CYCLOSILICATE (LOKELMA) 5 GM PACKET PO SCH ×2 (10:48→23:01)
[2023-05-16] MEDS ORDERED: INSULIN (NOVOLOG) ASPART 100 UNITS/ML 10ML VIAL ONE ×3 (12:22→20:53)
[2023-05-16] MEDS: FUROSEMIDE 40 MG/4 ML INJECTABLE VIAL IVPUSH SCH (15:21)
[2023-05-17] MEDS: HEPARIN NA (PORCINE) 5,000 UNITS/ML 1ML VIAL SQ SCH ×3 (05:30→22:56)
[2023-05-17] MEDS: INSULIN (NOVOLOG) ASPART 100 UNITS/ML 10ML VIAL SQ SCH ×4 (06:24→22:56)
[2023-05-17] MEDS: INSULIN (LEVEMIR) 100 UNITS/ML UNITS SQ SCH (06:24)
[2023-05-17] MEDS: ALBUTEROL SO4 2.5/IPRATROPIUM 0.5 INH SOL 3 ML VIAL.NEB. NEB PRN (06:40)
[2023-05-17] MEDS: FUROSEMIDE 40 MG/4 ML INJECTABLE VIAL IVPUSH SCH ×2 (06:57→11:19)
[2023-05-17 08:32] LABS: HEMATOCRIT 29.2 % (32.4-45.2); HEMOGLOBIN 9.6 GM/dL (10.7-15.3); MCH 27.6 pg (25.7-33.7); MCHC 32.9 g/dl (32.0-36.0); MEAN CELL VOLUME 83.9 fl (80-96); MEAN PLT VOLUME 8.8 fl (7.5-11.1); PLATELET COUNT 338 10^3/uL (134-434); RBC 3.48 M/mm3 (3.60-5.2); RDW 16.9 % (11.6-15.6); WHITE BLOOD COUNT 12.7 K/mm3 (4.0-10.0)
[2023-05-17 09:02] LABS: POTASSIUM 4.7 mmol/L (3.5-5.1)
[2023-05-17 09:03] LABS: CALCIUM 8.2 mg/dL (8.5-10.1)
[2023-05-17 09:04] LABS: BLOOD UREA NITROGEN 87.6 mg/dL (7-18); MAGNESIUM 2.4 mg/dL (1.8-2.4)
[2023-05-17 09:07] LABS: CREATININE 3.5 mg/dL (0.55-1.3); PHOSPHOROUS 5.2 mg/dL (2.5-4.9)
[2023-05-17 09:09] LABS: BILIRUBIN,TOTAL 0.6 mg/dL (0.2-1); TOT PROT 6.7 g/dl (6.4-8.2)
[2023-05-17] MEDS: ASPIRIN 81 MG CHEWABLE TABLETS PO SCH (11:22)
[2023-05-17] MEDS: SODIUM BICARBONATE 650 MG TABLET PO SCH (11:22)
[2023-05-17] MEDS: FAMOTIDINE 20 MG TABLET PO SCH (11:22)
[2023-05-17] MEDS: CLOPIDOGREL BISULFATE 75 MG TABLET (FP) PO SCH (11:22)
[2023-05-17] MEDS: amLODIPine BESYLATE 10 MG TABLET (FP) PO SCH (11:22)
[2023-05-17 14:05] LABS: ARTERIAL BLD GAS O2 SATURATION 98.2 % (95-98); ARTERIAL BLOOD GAS BASE EXCESS -0.1 mmol/L (-2-2); ARTERIAL BLOOD GAS PO2 108.7 mmHg (80-100); ARTERIAL BLOOD GAS pH 7.458 (7.350-7.450)
[2023-05-17 14:09] LABS: ALLENS TEST POSITIVE
[2023-05-17 14:10] LABS: VENT MODE S/T; VENT RATE 12
[2023-05-18] MEDS: INSULIN (LEVEMIR) 100 UNITS/ML UNITS SQ SCH (06:26)
[2023-05-18] MEDS: INSULIN (NOVOLOG) ASPART 100 UNITS/ML 10ML VIAL SQ SCH ×4 (06:26→21:37)
[2023-05-18] MEDS: HEPARIN NA (PORCINE) 5,000 UNITS/ML 1ML VIAL SQ SCH ×3 (06:26→21:38)
[2023-05-18 07:11] LABS: HEMATOCRIT 33.2 % (32.4-45.2); HEMOGLOBIN 10.5 GM/dL (10.7-15.3); MCH 27.2 pg (25.7-33.7); MCHC 31.7 g/dl (32.0-36.0); MEAN CELL VOLUME 85.8 fl (80-96); PLATELET COUNT 328 10^3/uL (134-434); RBC 3.87 M/mm3 (3.60-5.2); RDW 16.8 % (11.6-15.6); WHITE BLOOD COUNT 8.6 K/mm3 (4.0-10.0)
[2023-05-18 07:38] LABS: ALBUMIN 2.9 g/dl (3.4-5.0); BLOOD UREA NITROGEN 79.9 mg/dL (7-18); CALCIUM 8.2 mg/dL (8.5-10.1)
[2023-05-18 07:41] LABS: CREATININE 3.5 mg/dL (0.55-1.3)
[2023-05-18 07:43] LABS: BILIRUBIN,TOTAL 0.7 mg/dL (0.2-1); TOT PROT 6.8 g/dl (6.4-8.2)
[2023-05-18] MEDS ORDERED: FAMOTIDINE 20 MG TABLET PO SCH (10:00)
[2023-05-18] MEDS: FUROSEMIDE 40 MG/4 ML INJECTABLE VIAL IVPUSH SCH (10:18)
[2023-05-18] MEDS: SODIUM BICARBONATE 650 MG TABLET PO SCH (10:18)
[2023-05-18] MEDS: amLODIPine BESYLATE 10 MG TABLET (FP) PO SCH (10:18)
[2023-05-18] MEDS: CLOPIDOGREL BISULFATE 75 MG TABLET (FP) PO SCH (10:18)
[2023-05-18] MEDS: ASPIRIN 81 MG CHEWABLE TABLETS PO SCH (10:18)
[2023-05-18] MEDS: FAMOTIDINE 10 MG TABLET PO SCH (10:18)
[2023-05-18] MEDS ORDERED: FUROSEMIDE 40 MG/4 ML INJECTABLE VIAL IVPUSH ONE (11:30)
[2023-05-18 11:36] LABS: ARTERIAL BLD GAS O2 SATURATION 97.9 % (95-98); ARTERIAL BLOOD GAS BASE EXCESS -0.4 mmol/L (-2-2); ARTERIAL BLOOD GAS PO2 101.4 mmHg (80-100); ARTERIAL BLOOD GAS pH 7.445 (7.350-7.450)
[2023-05-18 11:37] LABS: ALLENS TEST POSITIVE
[2023-05-18 11:38] LABS: VENT RATE 12
[2023-05-18] MEDS ORDERED: INSULIN (NOVOLOG) ASPART 100 UNITS/ML 10ML VIAL ONE (21:34)
[2023-05-18 22:01] VITALS: BMI 23.6
[2023-05-19] MEDS: HEPARIN NA (PORCINE) 5,000 UNITS/ML 1ML VIAL SQ SCH ×3 (06:09→21:21)
[2023-05-19] MEDS: INSULIN (NOVOLOG) ASPART 100 UNITS/ML 10ML VIAL SQ SCH ×4 (06:10→21:22)
[2023-05-19] MEDS: INSULIN (LEVEMIR) 100 UNITS/ML UNITS SQ SCH (06:49)
[2023-05-19 07:33] LABS: HEMATOCRIT 30.9 % (32.4-45.2); HEMOGLOBIN 10.2 GM/dL (10.7-15.3); MEAN CELL VOLUME 84.9 fl (80-96); MEAN PLT VOLUME 8.9 fl (7.5-11.1); PLATELET COUNT 325 10^3/uL (134-434); RBC 3.64 M/mm3 (3.60-5.2); RDW 16.6 % (11.6-15.6); WHITE BLOOD COUNT 8.1 K/mm3 (4.0-10.0)
[2023-05-19 07:58] LABS: POTASSIUM 4.7 mmol/L (3.5-5.1)
[2023-05-19 07:59] LABS: BLOOD UREA NITROGEN 77.1 mg/dL (7-18); CALCIUM 8.5 mg/dL (8.5-10.1); MAGNESIUM 2.4 mg/dL (1.8-2.4)
[2023-05-19 08:03] LABS: CREATININE 3.2 mg/dL (0.55-1.3)
[2023-05-19] MEDS: amLODIPine BESYLATE 10 MG TABLET (FP) PO SCH (10:43)
[2023-05-19] MEDS: SODIUM BICARBONATE 650 MG TABLET PO SCH (10:43)
[2023-05-19] MEDS: CLOPIDOGREL BISULFATE 75 MG TABLET (FP) PO SCH (10:43)
[2023-05-19] MEDS: FUROSEMIDE 40 MG/4 ML INJECTABLE VIAL IVPUSH SCH ×2 (10:43→14:00)
[2023-05-19] MEDS: FAMOTIDINE 10 MG TABLET PO SCH (10:44)
[2023-05-19] MEDS: ASPIRIN 81 MG CHEWABLE TABLETS PO SCH (10:44)
[2023-05-19] MEDS: PIPERACILLIN/TAZOB 2.25 GM 2.25 GM in DEXTROSE 5%-WATER - 50 ML IVPB SCH ×2 (12:23→18:39)
[2023-05-20] MEDS: PIPERACILLIN/TAZOB 2.25 GM 2.25 GM in DEXTROSE 5%-WATER - 50 ML IVPB SCH ×3 (01:25→18:31)
[2023-05-20] MEDS: HEPARIN NA (PORCINE) 5,000 UNITS/ML 1ML VIAL SQ SCH ×3 (06:04→21:45)
[2023-05-20] MEDS: FUROSEMIDE 40 MG/4 ML INJECTABLE VIAL IVPUSH SCH ×2 (06:05→16:39)
[2023-05-20] MEDS: INSULIN (LEVEMIR) 100 UNITS/ML UNITS SQ SCH (06:20)
[2023-05-20] MEDS: INSULIN (NOVOLOG) ASPART 100 UNITS/ML 10ML VIAL SQ SCH ×4 (06:21→21:51)
[2023-05-20 07:43] LABS: HEMOGLOBIN 10.8 GM/dL (10.7-15.3); MCH 27.8 pg (25.7-33.7); MCHC 32.6 g/dl (32.0-36.0); MEAN CELL VOLUME 85.1 fl (80-96); PLATELET COUNT 331 10^3/uL (134-434); RBC 3.88 M/mm3 (3.60-5.2); RDW 16.6 % (11.6-15.6); WHITE BLOOD COUNT 6.4 K/mm3 (4.0-10.0)
[2023-05-20] MEDS: ALBUTEROL SO4 2.5/IPRATROPIUM 0.5 INH SOL 3 ML VIAL.NEB. NEB PRN ×2 (07:50→19:59)
[2023-05-20 07:53] LABS: POTASSIUM 5.1 mmol/L (3.5-5.1)
[2023-05-20 07:55] LABS: BLOOD UREA NITROGEN 69.6 mg/dL (7-18); CALCIUM 8.6 mg/dL (8.5-10.1); MAGNESIUM 2.2 mg/dL (1.8-2.4)
[2023-05-20 07:58] LABS: CREATININE 3.3 mg/dL (0.55-1.3); PHOSPHOROUS 3.9 mg/dL (2.5-4.9)
[2023-05-20] MEDS: CLOPIDOGREL BISULFATE 75 MG TABLET (FP) PO SCH (12:17)
[2023-05-20] MEDS: amLODIPine BESYLATE 10 MG TABLET (FP) PO SCH (12:17)
[2023-05-20] MEDS: ASPIRIN 81 MG CHEWABLE TABLETS PO SCH (12:17)
[2023-05-20] MEDS: FAMOTIDINE 10 MG TABLET PO SCH (12:17)
[2023-05-20] MEDS: SODIUM BICARBONATE 650 MG TABLET PO SCH (12:39)
[2023-05-20] MEDS: CARVEDILOL 6.25 MG TABLET (FP) PO SCH (21:45)
[2023-05-20] MEDS: ATORVASTATIN CA 20 MG TABLET (FP) PO SCH (21:45)
[2023-05-21] MEDS: PIPERACILLIN/TAZOB 2.25 GM 2.25 GM in DEXTROSE 5%-WATER - 50 ML IVPB SCH ×3 (03:17→17:34)
[2023-05-21] MEDS: HEPARIN NA (PORCINE) 5,000 UNITS/ML 1ML VIAL SQ SCH ×3 (06:27→21:42)
[2023-05-21] MEDS: FUROSEMIDE 40 MG/4 ML INJECTABLE VIAL IVPUSH SCH ×2 (06:28→14:20)
[2023-05-21] MEDS: INSULIN (NOVOLOG) ASPART 100 UNITS/ML 10ML VIAL SQ SCH ×4 (06:28→21:46)
[2023-05-21] MEDS: INSULIN (LEVEMIR) 100 UNITS/ML UNITS SQ SCH (07:24)
[2023-05-21 07:59] LABS: HEMATOCRIT 33.1 % (32.4-45.2); HEMOGLOBIN 10.6 GM/dL (10.7-15.3); MCH 27.3 pg (25.7-33.7); MCHC 32.1 g/dl (32.0-36.0); PLATELET COUNT 327 10^3/uL (134-434); RDW 16.4 % (11.6-15.6); WHITE BLOOD COUNT 5.3 K/mm3 (4.0-10.0)
[2023-05-21 08:18] LABS: POTASSIUM 4.8 mmol/L (3.5-5.1)
[2023-05-21 08:22] LABS: ALBUMIN 2.6 g/dl (3.4-5.0); BLOOD UREA NITROGEN 62.1 mg/dL (7-18); CALCIUM 8.5 mg/dL (8.5-10.1)
[2023-05-21 08:25] LABS: CREATININE 3.5 mg/dL (0.55-1.3)
[2023-05-21 08:28] LABS: BILIRUBIN,TOTAL 1.2 mg/dL (0.2-1); TOT PROT 6.3 g/dl (6.4-8.2)
[2023-05-21] MEDS: amLODIPine BESYLATE 10 MG TABLET (FP) PO SCH (09:40)
[2023-05-21] MEDS: FAMOTIDINE 10 MG TABLET PO SCH (09:40)
[2023-05-21] MEDS: CLOPIDOGREL BISULFATE 75 MG TABLET (FP) PO SCH (09:40)
[2023-05-21] MEDS: SODIUM BICARBONATE 650 MG TABLET PO SCH (09:40)
[2023-05-21] MEDS: CARVEDILOL 6.25 MG TABLET (FP) PO SCH (09:40)
[2023-05-21] MEDS: ASPIRIN 81 MG CHEWABLE TABLETS PO SCH (09:40)
[2023-05-21] MEDS: CARVEDILOL 12.5 MG TABLET (FP) PO SCH (21:42)
[2023-05-21] MEDS: ATORVASTATIN CA 20 MG TABLET (FP) PO SCH (21:42)
[2023-05-22] MEDS: PIPERACILLIN/TAZOB 2.25 GM 2.25 GM in DEXTROSE 5%-WATER - 50 ML IVPB SCH ×3 (01:14→17:30)
[2023-05-22] MEDS: HEPARIN NA (PORCINE) 5,000 UNITS/ML 1ML VIAL SQ SCH ×3 (06:07→21:53)
[2023-05-22] MEDS: FUROSEMIDE 40 MG/4 ML INJECTABLE VIAL IVPUSH SCH (06:08)
[2023-05-22] MEDS: INSULIN (NOVOLOG) ASPART 100 UNITS/ML 10ML VIAL SQ SCH ×4 (06:08→22:59)
[2023-05-22] MEDS: INSULIN (LEVEMIR) 100 UNITS/ML UNITS SQ SCH (07:45)
[2023-05-22 09:48] LABS: ALBUMIN 2.9 g/dl (3.4-5.0); BLOOD UREA NITROGEN 62.3 mg/dL (7-18)
[2023-05-22 09:49] LABS: CALCIUM 8.7 mg/dL (8.5-10.1)
[2023-05-22 09:52] LABS: CREATININE 3.6 mg/dL (0.55-1.3)
[2023-05-22 09:55] LABS: TOT PROT 6.8 g/dl (6.4-8.2)
[2023-05-22] MEDS: ASPIRIN 81 MG CHEWABLE TABLETS PO SCH (10:00)
[2023-05-22] MEDS: amLODIPine BESYLATE 10 MG TABLET (FP) PO SCH (10:00)
[2023-05-22] MEDS: CLOPIDOGREL BISULFATE 75 MG TABLET (FP) PO SCH (10:00)
[2023-05-22] MEDS: FAMOTIDINE 10 MG TABLET PO SCH (10:00)
[2023-05-22] MEDS: CARVEDILOL 12.5 MG TABLET (FP) PO SCH ×2 (10:00→21:53)
[2023-05-22] MEDS: ATORVASTATIN CA 20 MG TABLET (FP) PO SCH (21:53)
[2023-05-23] MEDS: PIPERACILLIN/TAZOB 2.25 GM 2.25 GM in DEXTROSE 5%-WATER - 50 ML IVPB SCH ×3 (01:14→18:35)
[2023-05-23 03:34] VITALS: RESP 18
[2023-05-23] MEDS: INSULIN (NOVOLOG) ASPART 100 UNITS/ML 10ML VIAL SQ SCH ×4 (06:43→21:55)
[2023-05-23] MEDS: HEPARIN NA (PORCINE) 5,000 UNITS/ML 1ML VIAL SQ SCH ×3 (06:43→21:54)
[2023-05-23] MEDS: INSULIN (LEVEMIR) 100 UNITS/ML UNITS SQ SCH (06:46)
[2023-05-23 08:33] LABS: HEMATOCRIT 31.5 % (32.4-45.2); HEMOGLOBIN 10.1 GM/dL (10.7-15.3); MCH 27.5 pg (25.7-33.7); MCHC 32.2 g/dl (32.0-36.0); MEAN CELL VOLUME 85.4 fl (80-96); MEAN PLT VOLUME 9.3 fl (7.5-11.1); PLATELET COUNT 290 10^3/uL (134-434); RBC 3.69 M/mm3 (3.60-5.2); RDW 16.6 % (11.6-15.6); WHITE BLOOD COUNT 5.6 K/mm3 (4.0-10.0)
[2023-05-23 08:36] LABS: POTASSIUM 4.6 mmol/L (3.5-5.1)
[2023-05-23 08:39] LABS: BLOOD UREA NITROGEN 56.8 mg/dL (7-18); CALCIUM 8.2 mg/dL (8.5-10.1)
[2023-05-23 08:40] LABS: ALBUMIN 2.6 g/dl (3.4-5.0)
[2023-05-23 08:43] LABS: CREATININE 3.9 mg/dL (0.55-1.3)
[2023-05-23 08:44] LABS: BILIRUBIN,TOTAL 0.8 mg/dL (0.2-1); TOT PROT 6.2 g/dl (6.4-8.2)
[2023-05-23] MEDS: CLOPIDOGREL BISULFATE 75 MG TABLET (FP) PO SCH (10:30)
[2023-05-23] MEDS: FAMOTIDINE 10 MG TABLET PO SCH (10:30)
[2023-05-23] MEDS: CARVEDILOL 12.5 MG TABLET (FP) PO SCH ×2 (10:30→21:54)
[2023-05-23] MEDS: amLODIPine BESYLATE 10 MG TABLET (FP) PO SCH (10:30)
[2023-05-23] MEDS: FUROSEMIDE 40 MG/4 ML INJECTABLE VIAL IVPUSH SCH (10:30)
[2023-05-23] MEDS: ASPIRIN 81 MG CHEWABLE TABLETS PO SCH (10:30)
[2023-05-23] MEDS: ATORVASTATIN CA 20 MG TABLET (FP) PO SCH (21:55)
[2023-05-24] MEDS: PIPERACILLIN/TAZOB 2.25 GM 2.25 GM in DEXTROSE 5%-WATER - 50 ML IVPB SCH (02:30)
[2023-05-24] MEDS: INSULIN (NOVOLOG) ASPART 100 UNITS/ML 10ML VIAL SQ SCH ×2 (06:19→11:32)
[2023-05-24] MEDS: HEPARIN NA (PORCINE) 5,000 UNITS/ML 1ML VIAL SQ SCH (06:23)
[2023-05-24] MEDS: INSULIN (LEVEMIR) 100 UNITS/ML UNITS SQ SCH (06:23)
[2023-05-24 08:11] LABS: BASO % 1.8 % (0-2.0); EOS % 5.3 % (0-4.5); HEMATOCRIT 32.5 % (32.4-45.2); HEMOGLOBIN 10.8 GM/dL (10.7-15.3); LYMPH % 22.5 % (8-40); MCH 28.1 pg (25.7-33.7); MCHC 33.4 g/dl (32.0-36.0); MEAN CELL VOLUME 84.2 fl (80-96); MEAN PLT VOLUME 9.4 fl (7.5-11.1); MONO % 7.6 % (3.8-10.2); NEUT % 62.8 % (42.8-82.8); PLATELET COUNT 316 10^3/uL (134-434); RBC 3.85 M/mm3 (3.60-5.2); RDW 16.6 % (11.6-15.6); WHITE BLOOD COUNT 6.6 K/mm3 (4.0-10.0)
[2023-05-24 08:12] LABS: POTASSIUM 5.1 mmol/L (3.5-5.1)
[2023-05-24 08:16] LABS: BLOOD UREA NITROGEN 52.2 mg/dL (7-18); INR 1.01 (0.83-1.09); PROTHROMBIN TIME (PATIENT) 11.7 SEC (9.7-13.0)
[2023-05-24 08:17] LABS: ALBUMIN 2.8 g/dl (3.4-5.0); CALCIUM 8.8 mg/dL (8.5-10.1); MAGNESIUM 2.1 mg/dL (1.8-2.4)
[2023-05-24 08:19] LABS: ACTIVATED PTT 44.9 SECONDS (25.2-36.5)
[2023-05-24 08:20] LABS: PHOSPHOROUS 3.9 mg/dL (2.5-4.9)
[2023-05-24 08:21] LABS: BILIRUBIN,TOTAL 0.8 mg/dL (0.2-1); CREATININE 4.1 mg/dL (0.55-1.3); TOT PROT 6.7 g/dl (6.4-8.2)
[2023-05-24] MEDS ORDERED: AMOX TR/POT CLAV 875MG/125MG TABLETS (FP) PO SCH (08:35)
[2023-05-24 10:00] VITALS: PULSE 75
[2023-05-24] MEDS: amLODIPine BESYLATE 10 MG TABLET (FP) PO SCH (10:03)
[2023-05-24] MEDS: CLOPIDOGREL BISULFATE 75 MG TABLET (FP) PO SCH (10:03)
[2023-05-24] MEDS: ASPIRIN 81 MG CHEWABLE TABLETS PO SCH (10:03)
[2023-05-24] MEDS: FAMOTIDINE 10 MG TABLET PO SCH (10:03)
[2023-05-24] MEDS: FUROSEMIDE 40 MG/4 ML INJECTABLE VIAL IVPUSH SCH (10:03)
[2023-05-24] MEDS: CARVEDILOL 12.5 MG TABLET (FP) PO SCH (10:05)
[2023-05-24 14:29] VITALS: BP 123/54; TEMP 97.7
== END 2023-05-24 14:49 | disposition home or self-care (01) | DRG 682 ==
LOC: JER 10:26 → JERBED 11:57 → J6S 18:44 → J8W 05-13 15:47 → J7W 05-14 20:54 → J4W 05-17 20:58
PROVIDERS: ADMIT Internal Medicine; ATTEND Internal Medicine
DX: N17.9 Acute kidney failure, unspecified (principal); E43 Unspecified severe protein-calorie malnutrition; J96.01 Acute respiratory failure with hypoxia; I50.31 Acute diastolic (congestive) heart failure; I13.0 Hypertensive heart and chronic kidney disease with heart failure and stage 1 through stage 4 chronic kidney disease, or unspecified chronic kidney disease; E87.1 Hypo-osmolality and hyponatremia; M62.82 Rhabdomyolysis; N39.0 Urinary tract infection, site not specified; R78.81 Bacteremia; E87.20 Acidosis, unspecified; N18.4 Chronic kidney disease, stage 4 (severe); I25.10 Atherosclerotic heart disease of native coronary artery without angina pectoris; E11.22 Type 2 diabetes mellitus with diabetic chronic kidney disease; R33.8 Other retention of urine; E86.0 Dehydration; D25.9 Leiomyoma of uterus, unspecified; N20.0 Calculus of kidney; N83.201 Unspecified ovarian cyst, right side; B96.20 Unspecified Escherichia coli [E. coli] as the cause of diseases classified elsewhere; Z68.20 Body mass index [BMI] 20.0-20.9, adult; I27.20 Pulmonary hypertension, unspecified; J39.8 Other specified diseases of upper respiratory tract
CPT/HCPCS: 0241U-QW; 36415; 36430; 36600; 70490-TC; 71045-TC-FY; 71250-TC; 74176-TC; 76700-TC; 80048; 80053; 80307; 81003; 82010; 82248; 82308; 82550; 82553; 82570; 82607; 82728; 82746; 82803; 82962; 83010; 83036; 83540; 83550; 83605; 83615; 83735; 83880; 83935; 84100; 84300; 84443; 84484; 85025; 85027; 85045; 85610; 85730; 86038; 86705; 86803; 86850; 86900; 86901; 86922; 87040; 87086; 87186; 87324; 87340; 87449; 87517; 87633; 93005; 93010; 93306-TC; 94640; 94660; 94761; 97116-GP; 97162-GP; 99285-25; J1100; J1644; P9058

== ENCOUNTER 2023-06-11 10:58 | Inpatient (IN) | payer MEDICARE, OTHER ==
[2023-06-11 11:21] VITALS: BMI 23.3
[2023-06-11 12:14] LABS: BASO % 0.4 % (0-2.0); EOS % 1.3 % (0-4.5); HEMATOCRIT 35.1 % (32.4-45.2); HEMOGLOBIN 11.1 GM/dL (10.7-15.3); LYMPH % 8.1 % (8-40); MCH 27.3 pg (25.7-33.7); MCHC 31.6 g/dl (32.0-36.0); MEAN CELL VOLUME 86.6 fl (80-96); MEAN PLT VOLUME 9.6 fl (7.5-11.1); MONO % 3.7 % (3.8-10.2); NEUT % 86.5 % (42.8-82.8); PLATELET COUNT 259 10^3/uL (134-434); RBC 4.05 M/mm3 (3.60-5.2); RDW 16.4 % (11.6-15.6)
[2023-06-11 12:17] LABS: EPI CELLS 6 /uL (0-25.1); HYALINE CASTS 0 /uL (0-3.1); URINE APPEARANCE CLEAR; URINE BACTERIA 14 /uL (0-1359); URINE BILIRUBIN NEGATIVE (NEGATIVE); URINE COLOR YELLOW; URINE GLUCOSE (UA) NEGATIVE (NEGATIVE); URINE KETONE NEGATIVE (NEGATIVE); URINE LEUK ESTERASE 2+ (NEGATIVE); URINE NITRITE NEGATIVE (NEGATIVE); URINE PROTEIN 1+ (NEGATIVE); URINE RBC 13 /uL (0-23.9); URINE UROBILINOGEN 0.2 mg/dL (0.2-1.0); URINE WBC 55 /uL (0-25.8)
[2023-06-11 12:32] LABS: POTASSIUM 4.4 mmol/L (3.5-5.1)
[2023-06-11 12:34] LABS: ALBUMIN 4.1 g/dl (3.4-5.0); BLOOD UREA NITROGEN 64.9 mg/dL (7-18)
[2023-06-11 12:37] LABS: CREATININE 2.9 mg/dL (0.55-1.3)
[2023-06-11 12:39] LABS: BILIRUBIN,TOTAL 0.6 mg/dL (0.2-1); TOT PROT 8.4 g/dl (6.4-8.2)
[2023-06-11] MEDS ORDERED: CEFTRIAXONE 1,000 MG in DEXTROSE 5%-WATER - 50 ML IVPB ONE (12:44)
[2023-06-11] MEDS ORDERED: CEFTRIAXONE 1 GM/50 ML BAG ONE (13:08)
[2023-06-11] MEDS ORDERED: SODIUM CHLORIDE 500 ML IV STA (16:14)
[2023-06-11] MEDS ORDERED: FAMOTIDINE 20 MG TABLET PO PRN (16:18)
[2023-06-11] MEDS ORDERED: ACETAMINOPHEN 1000 MG/100 ML BAG IVPB PRN (16:26)
[2023-06-11] MEDS: PIPERACILLIN/TAZOB 2.25 GM 2.25 GM in DEXTROSE 5%-WATER - 50 ML IVPB SCH (18:06)
[2023-06-11] MEDS: CARVEDILOL 12.5 MG TABLET (FP) PO SCH (21:44)
[2023-06-11] MEDS: HEPARIN NA (PORCINE) 5,000 UNITS/ML 1ML VIAL SQ SCH (21:44)
[2023-06-11] MEDS: ATORVASTATIN CA 80 MG TABLET (FP) PO SCH (21:44)
[2023-06-11] MEDS ORDERED: INSULIN (LEVEMIR) 100 UNITS/ML UNITS SQ SCH ×2 (22:00)
[2023-06-12] MEDS: PIPERACILLIN/TAZOB 2.25 GM 2.25 GM in DEXTROSE 5%-WATER - 50 ML IVPB SCH ×4 (04:10→18:05)
[2023-06-12] MEDS: HEPARIN NA (PORCINE) 5,000 UNITS/ML 1ML VIAL SQ SCH ×3 (05:41→22:37)
[2023-06-12 08:41] LABS: BASO % 0.5 % (0-2.0); EOS % 1.2 % (0-4.5); HEMATOCRIT 25.1 % (32.4-45.2); LYMPH % 11.2 % (8-40); MCH 27.7 pg (25.7-33.7); MEAN CELL VOLUME 86.4 fl (80-96); MEAN PLT VOLUME 9.5 fl (7.5-11.1); MONO % 5.9 % (3.8-10.2); NEUT % 81.2 % (42.8-82.8); PLATELET COUNT 161 10^3/uL (134-434); RDW 15.7 % (11.6-15.6); WHITE BLOOD COUNT 17.7 K/mm3 (4.0-10.0)
[2023-06-12 08:57] LABS: POTASSIUM 4.1 mmol/L (3.5-5.1)
[2023-06-12 09:07] LABS: BLOOD UREA NITROGEN 59.3 mg/dL (7-18); MAGNESIUM 2.6 mg/dL (1.8-2.4)
[2023-06-12 09:12] LABS: BILIRUBIN,TOTAL 0.7 mg/dL (0.2-1)
[2023-06-12 09:27] LABS: ALBUMIN 2.7 g/dl (3.4-5.0); TOT PROT 5.6 g/dl (6.4-8.2)
[2023-06-12] MEDS: amLODIPine BESYLATE 10 MG TABLET (FP) PO SCH (09:51)
[2023-06-12] MEDS: ASPIRIN 81 MG CHEWABLE TABLETS PO SCH (09:51)
[2023-06-12] MEDS: CLOPIDOGREL BISULFATE 75 MG TABLET (FP) PO SCH (09:51)
[2023-06-12] MEDS: CARVEDILOL 12.5 MG TABLET (FP) PO SCH ×2 (09:52→22:37)
[2023-06-12 12:51] LABS: BASO % 0.3 % (0-2.0); EOS % 1.7 % (0-4.5); HEMATOCRIT 25.4 % (32.4-45.2); HEMOGLOBIN 8.3 GM/dL (10.7-15.3); MCH 27.8 pg (25.7-33.7); MCHC 32.8 g/dl (32.0-36.0); MEAN CELL VOLUME 84.6 fl (80-96); PLATELET COUNT 165 10^3/uL (134-434); RDW 15.9 % (11.6-15.6); WHITE BLOOD COUNT 15.9 K/mm3 (4.0-10.0)
[2023-06-12] MEDS: INSULIN SLIDING SCALE (NOVOLOG) 1 VIAL SQ SCH (18:06)
[2023-06-12] MEDS: ATORVASTATIN CA 80 MG TABLET (FP) PO SCH (22:37)
[2023-06-12] MEDS: INSULIN (LEVEMIR) 100 UNITS/ML UNITS SQ SCH (22:38)
[2023-06-13] MEDS: PIPERACILLIN/TAZOB 2.25 GM 2.25 GM in DEXTROSE 5%-WATER - 50 ML IVPB SCH ×2 (03:25→10:36)
[2023-06-13] MEDS: HEPARIN NA (PORCINE) 5,000 UNITS/ML 1ML VIAL SQ SCH ×3 (06:26→22:00)
[2023-06-13] MEDS: INSULIN SLIDING SCALE (NOVOLOG) 1 VIAL SQ SCH ×3 (06:27→17:14)
[2023-06-13] MEDS: INSULIN (LEVEMIR) 100 UNITS/ML UNITS SQ SCH ×2 (06:27→22:28)
[2023-06-13 07:59] LABS: POTASSIUM 4.4 mmol/L (3.5-5.1)
[2023-06-13 08:03] LABS: CALCIUM 7.7 mg/dL (8.5-10.1)
[2023-06-13 08:04] LABS: ALBUMIN 2.7 g/dl (3.4-5.0); BLOOD UREA NITROGEN 53.1 mg/dL (7-18)
[2023-06-13 08:07] LABS: CREATININE 3.2 mg/dL (0.55-1.3)
[2023-06-13 08:08] LABS: TOT PROT 5.6 g/dl (6.4-8.2)
[2023-06-13 08:09] LABS: BILIRUBIN,TOTAL 0.6 mg/dL (0.2-1)
[2023-06-13 08:13] LABS: HEMATOCRIT 25.7 % (32.4-45.2); HEMOGLOBIN 8.2 GM/dL (10.7-15.3); MCH 27.8 pg (25.7-33.7); MEAN CELL VOLUME 86.8 fl (80-96); MEAN PLT VOLUME 9.7 fl (7.5-11.1); PLATELET COUNT 155 10^3/uL (134-434); RBC 2.96 M/mm3 (3.60-5.2); RDW 15.8 % (11.6-15.6); WHITE BLOOD COUNT 11.1 K/mm3 (4.0-10.0)
[2023-06-13] MEDS ORDERED: FUROSEMIDE 40 MG TABLET (FP) PO SCH (10:00)
[2023-06-13] MEDS: FUROSEMIDE 40 MG TABLET (FP) PO SCH (10:37)
[2023-06-13] MEDS: amLODIPine BESYLATE 10 MG TABLET (FP) PO SCH (10:37)
[2023-06-13] MEDS: CLOPIDOGREL BISULFATE 75 MG TABLET (FP) PO SCH (10:37)
[2023-06-13] MEDS: CARVEDILOL 12.5 MG TABLET (FP) PO SCH ×2 (10:37→22:00)
[2023-06-13] MEDS: ASPIRIN 81 MG CHEWABLE TABLETS PO SCH (10:37)
[2023-06-13] MEDS ORDERED: INSULIN (NOVOLOG) ASPART 100 UNITS/ML 10ML VIAL ONE (11:47)
[2023-06-13] MEDS: ATORVASTATIN CA 80 MG TABLET (FP) PO SCH (22:00)
[2023-06-14] MEDS: HEPARIN NA (PORCINE) 5,000 UNITS/ML 1ML VIAL SQ SCH ×2 (06:11→15:29)
[2023-06-14] MEDS: INSULIN (LEVEMIR) 100 UNITS/ML UNITS SQ SCH (06:17)
[2023-06-14] MEDS: INSULIN SLIDING SCALE (NOVOLOG) 1 VIAL SQ SCH ×2 (06:17→12:10)
[2023-06-14 07:31] LABS: HEMATOCRIT 25.6 % (32.4-45.2); HEMOGLOBIN 8.3 GM/dL (10.7-15.3); MCH 27.8 pg (25.7-33.7); MCHC 32.4 g/dl (32.0-36.0); MEAN CELL VOLUME 85.8 fl (80-96); MEAN PLT VOLUME 9.3 fl (7.5-11.1); PLATELET COUNT 163 10^3/uL (134-434); RBC 2.98 M/mm3 (3.60-5.2); RDW 15.7 % (11.6-15.6); WHITE BLOOD COUNT 7.1 K/mm3 (4.0-10.0)
[2023-06-14 07:59] LABS: POTASSIUM 4.4 mmol/L (3.5-5.1)
[2023-06-14 08:00] LABS: CALCIUM 8.5 mg/dL (8.5-10.1)
[2023-06-14 08:01] LABS: BLOOD UREA NITROGEN 45.2 mg/dL (7-18); MAGNESIUM 2.7 mg/dL (1.8-2.4)
[2023-06-14 08:04] LABS: CREATININE 3.1 mg/dL (0.55-1.3); PHOSPHOROUS 3.9 mg/dL (2.5-4.9)
[2023-06-14] MEDS: CARVEDILOL 12.5 MG TABLET (FP) PO SCH (10:35)
[2023-06-14] MEDS: ASPIRIN 81 MG CHEWABLE TABLETS PO SCH (10:36)
[2023-06-14] MEDS: FUROSEMIDE 40 MG TABLET (FP) PO SCH (10:36)
[2023-06-14] MEDS: amLODIPine BESYLATE 10 MG TABLET (FP) PO SCH (10:36)
[2023-06-14] MEDS: CLOPIDOGREL BISULFATE 75 MG TABLET (FP) PO SCH (10:36)
[2023-06-14 15:27] VITALS: BP 136/52; PULSE 73; RESP 20; TEMP 97.9
[2023-06-15] MEDS ORDERED: FUROSEMIDE 20 MG TABLET (FP) PO SCH (10:00)
== END 2023-06-14 17:23 | disposition home or self-care (01) | DRG 637 ==
LOC: JER 10:58 → JERBED 12:45 → J4W 15:28
PROVIDERS: ADMIT Internal Medicine; ATTEND Internal Medicine
DX: E11.649 Type 2 diabetes mellitus with hypoglycemia without coma (principal); G93.41 Metabolic encephalopathy; I13.0 Hypertensive heart and chronic kidney disease with heart failure and stage 1 through stage 4 chronic kidney disease, or unspecified chronic kidney disease; I50.42 Chronic combined systolic (congestive) and diastolic (congestive) heart failure; I24.89 Other forms of acute ischemic heart disease; T38.3X5A Adverse effect of insulin and oral hypoglycemic [antidiabetic] drugs, initial encounter; N17.9 Acute kidney failure, unspecified; N18.4 Chronic kidney disease, stage 4 (severe); I25.10 Atherosclerotic heart disease of native coronary artery without angina pectoris; E11.22 Type 2 diabetes mellitus with diabetic chronic kidney disease; D64.9 Anemia, unspecified; E78.5 Hyperlipidemia, unspecified; N20.0 Calculus of kidney; T68.XXXA Hypothermia, initial encounter; X58.XXXA Exposure to other specified factors, initial encounter; Y93.9 Activity, unspecified; Y92.9 Unspecified place or not applicable
CPT/HCPCS: 36415; 71045-TC-FY; 76775-TC; 80048; 80053; 81003; 82533; 82962; 83010; 83036; 83605; 83615; 83735; 83880; 84100; 84443; 84484; 85025; 85027; 87040; 87086; 93005; 93010; 97116-GP; 97162-GP; 99285-25; J1644

== ENCOUNTER 2023-08-02 12:42 | Inpatient (IN) | payer MEDICARE, OTHER ==
[2023-08-02] MEDS ORDERED: ALBUTEROL SO4 2.5/IPRATROPIUM 0.5 INH SOL 3 ML VIAL.NEB. NEB ONE ×2 (14:25→14:46)
[2023-08-02 14:43] LABS: HEMATOCRIT 27.3 % (32.4-45.2); HEMOGLOBIN 8.8 GM/dL (10.7-15.3); MCH 27.5 pg (25.7-33.7); MCHC 32.2 g/dl (32.0-36.0); MEAN CELL VOLUME 85.4 fl (80-96); MEAN PLT VOLUME 8.5 fl (7.5-11.1); PLATELET COUNT 237 10^3/uL (134-434); WHITE BLOOD COUNT 5.7 K/mm3 (4.0-10.0)
[2023-08-02 15:08] LABS: POTASSIUM 5.5 mmol/L (3.5-5.1)
[2023-08-02 15:11] LABS: CALCIUM 8.2 mg/dL (8.5-10.1)
[2023-08-02 15:12] LABS: ALBUMIN 3.3 g/dl (3.4-5.0); BLOOD UREA NITROGEN 65.1 mg/dL (7-18)
[2023-08-02 15:14] LABS: CREATININE 3.7 mg/dL (0.55-1.3)
[2023-08-02] MEDS ORDERED: SODIUM ZIRCONIUM CYCLOSILICATE (LOKELMA) 5 GM PACKET PO SCH (15:15)
[2023-08-02 15:16] LABS: BILIRUBIN,TOTAL 0.5 mg/dL (0.2-1); TOT PROT 7.1 g/dl (6.4-8.2)
[2023-08-02] MEDS ORDERED: FUROSEMIDE 40 MG TABLET (FP) PO ONE (15:16)
[2023-08-02] MEDS ORDERED: HEPARIN NA (PORCINE) 5,000 UNITS/ML 1ML VIAL IVPUSH PRN ×2 (15:19)
[2023-08-02] MEDS ORDERED: SODIUM ZIRCONIUM CYCLOSILICATE (LOKELMA) 10 GM PACKET ONE (15:19)
[2023-08-02] MEDS ORDERED: FUROSEMIDE 40 MG TABLET (FP) ONE (15:19)
[2023-08-02] MEDS ORDERED: HEPARIN INFUSION - 25,000 UNITS/500 ML INFUS.BAG IVPB ONE (15:27)
[2023-08-02] MEDS ORDERED: HEPARIN INFUSION - 25,000 UNITS/500 ML INFUS.BAG IVPB SCH (15:30)
[2023-08-02] MEDS ORDERED: CARVEDILOL 12.5 MG TABLET (FP) ONE (19:44)
[2023-08-02] MEDS ORDERED: ATORVASTATIN CA 80 MG TABLET (FP) ONE (19:45)
[2023-08-02] MEDS: CARVEDILOL 12.5 MG TABLET (FP) PO SCH (21:05)
[2023-08-02] MEDS: ATORVASTATIN CA 80 MG TABLET (FP) PO SCH (21:05)
[2023-08-02] MEDS: FUROSEMIDE 40 MG/4 ML INJECTABLE VIAL IVPUSH SCH (21:17)
[2023-08-02] MEDS ORDERED: FUROSEMIDE 40 MG/4 ML INJECTABLE VIAL ONE (21:18)
[2023-08-03] MEDS ORDERED: INSULIN ASPART SLIDING SCALE (NOVOLOG) 1 VIAL SQ SCH (07:00)
[2023-08-03 09:22] LABS: POTASSIUM 5.2 mmol/L (3.5-5.1)
[2023-08-03 09:26] LABS: BASO % 1.3 % (0-2.0); EOS % 7.2 % (0-4.5); HEMATOCRIT 26.9 % (32.4-45.2); HEMOGLOBIN 8.5 GM/dL (10.7-15.3); LYMPH % 21.3 % (8-40); MCH 27.4 pg (25.7-33.7); MCHC 31.7 g/dl (32.0-36.0); MEAN CELL VOLUME 86.5 fl (80-96); MEAN PLT VOLUME 8.7 fl (7.5-11.1); MONO % 8.1 % (3.8-10.2); NEUT % 62.1 % (42.8-82.8); PLATELET COUNT 210 10^3/uL (134-434); POTASSIUM 5.1 mmol/L (3.5-5.1); RBC 3.12 M/mm3 (3.60-5.2)
[2023-08-03 09:35] LABS: BLOOD UREA NITROGEN 64.3 mg/dL (7-18)
[2023-08-03 09:36] LABS: CREATININE 3.5 mg/dL (0.55-1.3)
[2023-08-03 09:40] LABS: ALBUMIN 3.3 g/dl (3.4-5.0); BLOOD UREA NITROGEN 65.9 mg/dL (7-18); CREATININE 3.4 mg/dL (0.55-1.3); TOT PROT 6.6 g/dl (6.4-8.2)
[2023-08-03] MEDS ORDERED: INSULIN (NOVOLOG) ASPART 100 UNITS/ML 10ML VIAL ONE ×2 (09:41→14:52)
[2023-08-03 09:44] LABS: BILIRUBIN,TOTAL 0.8 mg/dL (0.2-1)
[2023-08-03] MEDS: INSULIN ASPART SLIDING SCALE (NOVOLOG) 1 VIAL SQ SCH ×3 (09:50→17:04)
[2023-08-03] MEDS: CARVEDILOL 12.5 MG TABLET (FP) PO SCH (09:53)
[2023-08-03] MEDS: CLOPIDOGREL BISULFATE 75 MG TABLET (FP) PO SCH (09:53)
[2023-08-03] MEDS: amLODIPine BESYLATE 10 MG TABLET (FP) PO SCH (09:53)
[2023-08-03] MEDS: ASPIRIN COATED 81 MG TABLET.EC PO SCH (09:53)
[2023-08-03] MEDS: FUROSEMIDE 40 MG/4 ML INJECTABLE VIAL IVPUSH SCH (09:53)
[2023-08-03] MEDS ORDERED: SODIUM ZIRCONIUM CYCLOSILICATE (LOKELMA) 10 GM PACKET PO SCH (10:00)
[2023-08-03] MEDS ORDERED: ALBUTEROL SO4 0.083% IH SOL 2.5 MG/3 ML VIAL.NEB. NEB PRN (12:07)
[2023-08-03] MEDS ORDERED: FUROSEMIDE 40 MG/4 ML INJECTABLE VIAL IVPUSH ONE (16:35)
[2023-08-03] MEDS ORDERED: FUROSEMIDE 40 MG/4 ML INJECTABLE VIAL ONE (18:01)
[2023-08-04] MEDS: HEPARIN NA (PORCINE) 5,000 UNITS/ML 1ML VIAL SQ SCH ×3 (00:23→21:55)
[2023-08-04] MEDS ORDERED: HEPARIN NA (PORCINE) 5,000 UNITS/ML 1ML VIAL ONE (04:15)
[2023-08-04] MEDS ORDERED: CARVEDILOL 12.5 MG TABLET (FP) ONE (04:16)
[2023-08-04] MEDS ORDERED: ATORVASTATIN CA 80 MG TABLET (FP) ONE (04:17)
[2023-08-04] MEDS: CARVEDILOL 12.5 MG TABLET (FP) PO SCH ×3 (04:23→21:55)
[2023-08-04] MEDS: ATORVASTATIN CA 80 MG TABLET (FP) PO SCH ×2 (04:24→21:56)
[2023-08-04] MEDS: INSULIN ASPART SLIDING SCALE (NOVOLOG) 1 VIAL SQ SCH ×3 (06:57→17:31)
[2023-08-04 07:37] LABS: POTASSIUM 4.4 mmol/L (3.5-5.1)
[2023-08-04 07:41] LABS: CALCIUM 8.5 mg/dL (8.5-10.1)
[2023-08-04 07:45] LABS: CREATININE 3.4 mg/dL (0.55-1.3)
[2023-08-04 10:10] LABS: HEMATOCRIT 24.7 % (32.4-45.2); HEMOGLOBIN 8.2 GM/dL (10.7-15.3); MCH 28.2 pg (25.7-33.7); MCHC 33.3 g/dl (32.0-36.0); MEAN CELL VOLUME 84.5 fl (80-96); MEAN PLT VOLUME 8.6 fl (7.5-11.1); PLATELET COUNT 192 10^3/uL (134-434); RBC 2.93 M/mm3 (3.60-5.2); RDW 15.5 % (11.6-15.6); WHITE BLOOD COUNT 5.5 K/mm3 (4.0-10.0)
[2023-08-04] MEDS: FUROSEMIDE 40 MG/4 ML INJECTABLE VIAL IVPUSH SCH ×2 (10:15→15:56)
[2023-08-04] MEDS: amLODIPine BESYLATE 10 MG TABLET (FP) PO SCH (10:15)
[2023-08-04] MEDS: ASPIRIN COATED 81 MG TABLET.EC PO SCH (10:15)
[2023-08-04] MEDS: CLOPIDOGREL BISULFATE 75 MG TABLET (FP) PO SCH (10:15)
[2023-08-04] MEDS ORDERED: FUROSEMIDE 40 MG/4 ML INJECTABLE VIAL ONE (15:57)
[2023-08-04] MEDS: FAMOTIDINE 20 MG TABLET PO PRN (21:56)
[2023-08-04] MEDS ORDERED: ACETAMINOPHEN 325 MG TABLET (FP) PO PRN (23:31)
[2023-08-05] MEDS: INSULIN ASPART SLIDING SCALE (NOVOLOG) 1 VIAL SQ SCH ×3 (06:02→17:18)
[2023-08-05] MEDS: FUROSEMIDE 40 MG/4 ML INJECTABLE VIAL IVPUSH SCH ×2 (06:03→13:45)
[2023-08-05] MEDS: ASPIRIN COATED 81 MG TABLET.EC PO SCH (10:13)
[2023-08-05] MEDS: CARVEDILOL 12.5 MG TABLET (FP) PO SCH ×2 (10:13→21:51)
[2023-08-05] MEDS: HEPARIN NA (PORCINE) 5,000 UNITS/ML 1ML VIAL SQ SCH ×2 (10:13→21:48)
[2023-08-05] MEDS: CLOPIDOGREL BISULFATE 75 MG TABLET (FP) PO SCH (10:13)
[2023-08-05] MEDS: amLODIPine BESYLATE 10 MG TABLET (FP) PO SCH (10:13)
[2023-08-05] MEDS: FAMOTIDINE 20 MG TABLET PO PRN (21:48)
[2023-08-05] MEDS: ATORVASTATIN CA 80 MG TABLET (FP) PO SCH (21:48)
[2023-08-06] MEDS: INSULIN ASPART SLIDING SCALE (NOVOLOG) 1 VIAL SQ SCH ×3 (06:14→18:05)
[2023-08-06] MEDS: FUROSEMIDE 40 MG/4 ML INJECTABLE VIAL IVPUSH SCH ×2 (06:14→13:47)
[2023-08-06] MEDS: HEPARIN NA (PORCINE) 5,000 UNITS/ML 1ML VIAL SQ SCH ×3 (06:14→21:15)
[2023-08-06 08:31] LABS: HEMATOCRIT 25.2 % (32.4-45.2); HEMOGLOBIN 8.2 GM/dL (10.7-15.3); MCH 27.3 pg (25.7-33.7); MCHC 32.5 g/dl (32.0-36.0); MEAN CELL VOLUME 83.8 fl (80-96); MEAN PLT VOLUME 8.8 fl (7.5-11.1); PLATELET COUNT 166 10^3/uL (134-434); RBC 3.01 M/mm3 (3.60-5.2); RDW 15.2 % (11.6-15.6); WHITE BLOOD COUNT 5.1 K/mm3 (4.0-10.0)
[2023-08-06 08:43] LABS: POTASSIUM 3.8 mmol/L (3.5-5.1)
[2023-08-06 08:48] LABS: ALBUMIN 3.1 g/dl (3.4-5.0); CALCIUM 8.1 mg/dL (8.5-10.1); MAGNESIUM 2.3 mg/dL (1.8-2.4)
[2023-08-06 08:50] LABS: CREATININE 3.2 mg/dL (0.55-1.3)
[2023-08-06 08:51] LABS: PHOSPHOROUS 4.2 mg/dL (2.5-4.9)
[2023-08-06 08:52] LABS: BILIRUBIN,TOTAL 0.5 mg/dL (0.2-1); TOT PROT 6.1 g/dl (6.4-8.2)
[2023-08-06] MEDS: CLOPIDOGREL BISULFATE 75 MG TABLET (FP) PO SCH (10:16)
[2023-08-06] MEDS: amLODIPine BESYLATE 10 MG TABLET (FP) PO SCH (10:16)
[2023-08-06] MEDS: CARVEDILOL 12.5 MG TABLET (FP) PO SCH ×2 (10:16→21:15)
[2023-08-06] MEDS: ASPIRIN COATED 81 MG TABLET.EC PO SCH (10:16)
[2023-08-06] MEDS: predniSONE 20 MG TABLET (UD) PO SCH (14:06)
[2023-08-06] MEDS: ALBUTEROL SO4 2.5/IPRATROPIUM 0.5 INH SOL 3 ML VIAL.NEB. NEB SCH ×2 (15:42→20:50)
[2023-08-06 18:27] VITALS: RESP 18
[2023-08-06] MEDS: ATORVASTATIN CA 80 MG TABLET (FP) PO SCH (21:15)
[2023-08-06 23:59] VITALS: BMI 23.3
[2023-08-07] MEDS: HEPARIN NA (PORCINE) 5,000 UNITS/ML 1ML VIAL SQ SCH ×2 (06:34→15:34)
[2023-08-07] MEDS: INSULIN ASPART SLIDING SCALE (NOVOLOG) 1 VIAL SQ SCH ×3 (06:34→17:39)
[2023-08-07 07:05] LABS: HEMATOCRIT 25.4 % (32.4-45.2); HEMOGLOBIN 8.1 GM/dL (10.7-15.3); MEAN CELL VOLUME 84.4 fl (80-96); MEAN PLT VOLUME 9.3 fl (7.5-11.1); PLATELET COUNT 158 10^3/uL (134-434); RBC 3.01 M/mm3 (3.60-5.2); RDW 15.2 % (11.6-15.6); WHITE BLOOD COUNT 3.8 K/mm3 (4.0-10.0)
[2023-08-07 07:33] LABS: POTASSIUM 4.1 mmol/L (3.5-5.1)
[2023-08-07 07:46] LABS: ALBUMIN 2.9 g/dl (3.4-5.0); BLOOD UREA NITROGEN 54.2 mg/dL (7-18)
[2023-08-07 07:49] LABS: CREATININE 3.2 mg/dL (0.55-1.3)
[2023-08-07 07:50] LABS: BILIRUBIN,TOTAL 0.5 mg/dL (0.2-1); TOT PROT 6.1 g/dl (6.4-8.2)
[2023-08-07] MEDS: ALBUTEROL SO4 2.5/IPRATROPIUM 0.5 INH SOL 3 ML VIAL.NEB. NEB SCH ×3 (08:23→15:39)
[2023-08-07] MEDS ORDERED: FUROSEMIDE 40 MG TABLET (FP) PO SCH (10:00)
[2023-08-07] MEDS: CLOPIDOGREL BISULFATE 75 MG TABLET (FP) PO SCH (10:28)
[2023-08-07] MEDS: predniSONE 20 MG TABLET (UD) PO SCH (10:28)
[2023-08-07] MEDS: CARVEDILOL 12.5 MG TABLET (FP) PO SCH (10:28)
[2023-08-07] MEDS: amLODIPine BESYLATE 10 MG TABLET (FP) PO SCH (10:28)
[2023-08-07] MEDS: ASPIRIN COATED 81 MG TABLET.EC PO SCH (10:28)
[2023-08-07 18:33] VITALS: BP 135/56; PULSE 73; TEMP 97.8
== END 2023-08-07 18:50 | disposition home or self-care (01) | DRG 291 ==
LOC: JER 12:42 → JERBED 16:36 → J4W 08-04 16:51
PROVIDERS: ADMIT Internal Medicine; ATTEND Internal Medicine
DX: I13.0 Hypertensive heart and chronic kidney disease with heart failure and stage 1 through stage 4 chronic kidney disease, or unspecified chronic kidney disease (principal); I50.33 Acute on chronic diastolic (congestive) heart failure; I24.89 Other forms of acute ischemic heart disease; N18.4 Chronic kidney disease, stage 4 (severe); E11.22 Type 2 diabetes mellitus with diabetic chronic kidney disease; E78.5 Hyperlipidemia, unspecified; I25.10 Atherosclerotic heart disease of native coronary artery without angina pectoris; Z79.4 Long term (current) use of insulin; E87.5 Hyperkalemia
CPT/HCPCS: 0241U-QW; 36415; 71045-TC-FY; 80048; 80053; 82962; 83735; 83880; 84100; 84484; 85025; 85027; 85379; 85730; 93005; 93010; 93970-TC; 93971; 94640; 94761; 97116-GP; 97162-GP; 99285-25; J1644